=== PATIENT | male | born 1945 | race Caucasian/White ===

== ENCOUNTER 2016-06-25 07:36 | Observation (INO) | payer MEDICARE ==
[~2016-06-25] VITALS: Ht 175.3 cm; Wt 98.5 kg
[~2016-06-25 07:36] MED LIST: LVT.088T PO
--- OUTSIDE RECORDS SUMMARY | 2016-06-25 07:41 | XMS REPORT | Continuity of Care Document ---
Author Author [facility] Organization [facility] Address Unknown Phone Unavailable Care Team Providers Care Subassemblies Wirer Name Role Phone BECKY SHARMA MD PCP Insurance Providers Payer Name Policy Number Subscriber Name Relationship [employer] [id number] Valentino Figueroa 18 Self / Same As Patient [facility] [id number] Valentino Figueroa 16 Self / Same As Patient Advance Directives Directive Response Recorded Date/Time Advance Directives No 12/10/13 7:46am Health Care Power of Ergonomics Consultant No 12/10/13 7:46am Organ Donor No 12/10/13 7:46am Resuscitation Status Full Code 12/10/13 7:46am Problems No known problems or medical conditions. Medications Medication Dose Route Sig Days/Qty Instructions Order Date Discontinued Date Status Levothyroxine Sodium (Levothroid) 1 Each PO DAILY 12/09/13 Active Social History Social History Problem Response Recorded Date/Time Smoking Status Never a Smoker 12/10/2013 7:52am Do you dip or chew tobacco? No 12/10/2013 7:52am Query Response Start Date Stop Date Smoking Status Never a Smoker Hospital Discharge Instructions No hospital discharge instructions. Plan of Care No plan of care. Functional Status No functional status results. Allergies, Adverse Reactions, Alerts Allergen Type Severity Reaction Status Last Updated No Known Allergies Allergy Unknown Active 10/11/06 Immunizations No immunization records. Vital Signs Acute Vital Signs Vital Response Date/Time Temperature (Fahrenheit) 98.2 degrees F (97.6 - 99.5) Temperature (Calculated Celsius) 36.38437 degrees C (36.4 - 37.5) Temperature Source Tympanic Pulse Rate (adult) 44 bpm (60 - 90) Respiratory Rate 18 bpm (12 - 24) O2 Sat by Pulse Oximetry 94 % (88 - 100) Blood Pressure 121/69 mm Hg Pain Pain Intensity 0 Height (Feet) 5 feet Height (Inches) 9.00 inches Height (Calculated Centimeters) 175.545712 cm Weight (Pounds) 215 pounds Weight (Calculated Grams) 37004.361 gm Weight (Calculated Kilograms) 97.806047 kilograms Calculated BMI 31.75 Results Test Source Date Result Interp. Ref. Range Comments Absolute Reticulocyte Count November 16, 2007 9:00am 49 10^3/uL N 22-82 NEEDS PERIPHERAL SMEAR PER DR SHARMA Band Neutrophils November 16, 2007 9:00am 3 % - NEEDS PERIPHERAL SMEAR PER DR SHARMA Basophils # (Auto) November 16, 2007 9:00am 0.0 10^3/uL N 0.0-0.1 NEEDS PERIPHERAL SMEAR PER DR SHARMA Basophils % (Manual) November 16, 2007 9:00am 1 % - NEEDS PERIPHERAL SMEAR PER DR SHARMA Basophils (%) (Auto) November 16, 2007 9:00am 0 % N 0-10 NEEDS PERIPHERAL SMEAR PER DR SHARMA Eosinophils # (Auto) November 16, 2007 9:00am 0.1 10^3/uL N 0.0-0.3 NEEDS PERIPHERAL SMEAR PER DR SHARMA Eosinophils % (Manual) November 16, 2007 9:00am 0 % - NEEDS PERIPHERAL SMEAR PER DR SHARMA Eosinophils (%) (Auto) November 16, 2007 9:00am 1 % N 0-10 NEEDS PERIPHERAL SMEAR PER DR SHARMA Hematocrit November 16, 2007 9:00am 46 % N 40-54 NEEDS PERIPHERAL SMEAR PER DR SHARMA Hemoglobin November 16, 2007 9:00am 15.4 G/DL N 13.3-17.7 NEEDS PERIPHERAL SMEAR PER DR SHARMA Lymphocytes # (Auto) November 16, 2007 9:00am 2.2 X 10^3 N 1.0-4.0 NEEDS PERIPHERAL SMEAR PER DR SHARMA Lymphocytes % (Manual) November 16, 2007 9:00am 32 % - NEEDS PERIPHERAL SMEAR PER DR SHARMA Lymphocytes (%) (Auto) November 16, 2007 9:00am 29 % N 12-44 NEEDS PERIPHERAL SMEAR PER DR SHARMA Mean Corpuscular Hemoglobin November 16, 2007 9:00am 31 PG N 25-34 NEEDS PERIPHERAL SMEAR PER DR SHARMA Mean Corpuscular Hemoglobin Concent November 16, 2007 9:00am 34 G/DL N 32- 36 NEEDS PERIPHERAL SMEAR PER DR SHARMA Mean Corpuscular Volume November 16, 2007 9:00am 91 FL N 80-99 NEEDS PERIPHERAL SMEAR PER DR SHARMA Mean Platelet Volume November 16, 2007 9:00am 10.6 FL H 7.4-10.4 NEEDS PERIPHERAL SMEAR PER DR SHARMA Monocytes # (Auto) November 16, 2007 9:00am 1.0 X 10^3 N 0.0-1.0 NEEDS PERIPHERAL SMEAR PER DR SHARMA Monocytes % (Manual) November 16, 2007 9:00am 12 % - NEEDS PERIPHERAL SMEAR PER DR SHARMA Monocytes (%) (Auto) November 16, 2007 9:00am 13 % H 0-12 NEEDS PERIPHERAL SMEAR PER DR SHARMA Neutrophils # (Auto) November 16, 2007 9:00am 4.3 X 10^3 N 1.8-7.8 NEEDS PERIPHERAL SMEAR PER DR SHARMA Neutrophils % (Manual) November 16, 2007 9:00am 52 % - NEEDS PERIPHERAL SMEAR PER DR SHARMA Neutrophils (%) (Auto) November 16, 2007 9:00am 57 % N 42-75 NEEDS PERIPHERAL SMEAR PER DR SHARMA Percent Reticulocyte Count November 16, 2007 9:00am 0.97 % N 0.50-2.40 NEEDS PERIPHERAL SMEAR PER DR SHARMA Platelet Count November 16, 2007 9:00am 212 10^3/uL N 130-400 NEEDS PERIPHERAL SMEAR PER DR SHARMA Red Blood Count November 16, 2007 9:00am 5.01 10^6/uL N 4.35-5.85 NEEDS PERIPHERAL SMEAR PER DR SHARMA Red Cell Distribution Width November 16, 2007 9:00am 13.1 % N 10.0-14.5 NEEDS PERIPHERAL SMEAR PER DR SHARMA White Blood Count November 16, 2007 9:00am 7.6 10^3/uL N 4.3-11.0 NEEDS PERIPHERAL SMEAR PER DR SHARMA Blood Morphology Comment November 16, 2007 9:00am Normal - NEEDS PERIPHERAL SMEAR PER DR SHARMA Procedures Procedure Status Date Provider(s) Esophagogastroduodenoscopy (EGD) with dilation completed 12/10/13 SHYLA JARAMILLO MD Encounters Encounter Location Date/Time Registered Clinic [facility] 12/04/13 7:08am
[2016-06-25] MEDS ORDERED: ASPI-999 PO (07:46)
--- NOTE | 2016-06-25 07:47 | ED Respiratory ---
General Chief Complaint: Respiratory Problems Stated Complaint: SOB Nursing Triage Note: HAS HAD A COUGH FOR 2 WEEKS BUT THIS AM WOKE UP AT 2AM WITH SEVERE SOA. DENIES CHEST PAIN. Source: patient, family Exam Limitations: no limitations History of Present Illness Time seen by provider: 07:46 Initial Comments This 70-year-old white male presents with his who contributes to the history of the patient. For the last 2 weeks the patient has had a persistent productive cough with green sputum. The patient has had intermittent fever. This morning the patient experienced an episode of shortness of breath without associated chest pain. This episode precipitated his presentation to the emergency department. Past medical history of significance includes hypothyroidism. There is no history of lung disease. There is a family history of heart disease and diabetes. The patient is under the care of Dr. Sharma. There has been no associated headache or stiff neck, nausea, vomiting, diarrhea , dysuria or frequency. There is no history of clotting abnormalities. The patient takes a baby aspirin daily prophylactically. Allergies and Home Medications Allergies Coded Allergies: NKANo Known Allergies (Verified Allergy, Unknown, 10/11/06) Home Medications Aspirin 81 Mg Tab.chew 81 MG PO DAILY (Reported) Levothyroxine Sodium 88 Mcg Tablet 1 EACH PO DAILY (Reported) Constitutional: fever EENTM: No ear pain, No nose congestion, No throat pain Respiratory: see HPI cough short of breath Cardiovascular: No chest pain, No palpitations Gastrointestinal: No abdominal pain, No diarrhea, No nausea, No vomiting Genitourinary: No dysuria, No frequency Musculoskeletal: No back pain, No joint swelling Skin: No rash Psychiatric/Neurological: No Symptoms Reported Hematologic/Lymphatic: Denies Blood Clots Immunological/Allergic: pollen allergy Past Zqngoie-Vxzcdl-Qpgzpb Hx Patient Social History Alcohol Use: Denies Use Recreational Drug Use: No Smoking Status: Never a Smoker Recent Foreign Travel: No Contact w/Someone Who Travel: No Recent Infectious Disease Expo: No Recent Hopitalizations: No Surgeries HX Surgeries: Yes (HEMORRHOIDECTOMY) Surgeries: Rectal (hemorrhoidectomy.), Tonsillectomy Respiratory Hx Respiratory Disorders: No Cardiovascular Hx Cardiac Disorders: No Neurological Hx Neurological Disorders: No Genitourinary Hx Genitourinary Disorders: No Gastrointestinal Hx Gastrointestinal Disorders: No Musculoskeletal Hx Musculoskeletal Disorders: Yes (ARTHRITIS) Endocrine Hx Endocrine Disorders: Yes Endocrine Disorders: Hypothyroidsim Cancer Hx Cancer: Yes Cancer: Skin Psychosocial Hx Psychiatric Problems: Yes Behavioral Health Disorders: Anxiety Reviewed Nursing Assessment Reviewed/Agree w Nursing PMH: Yes Physical Exam Vital Signs Vital Sign - Last 12Hours 06/25/16 07:41 Temp 96.2 Pulse 46 Resp 18 B/P 150/68 Pulse Ox 93 Capillary Refill : Less Than 3 Seconds General Appearance: WD/WN no apparent distress Eyes: Bilateral Eye Normal Inspection HEENT: normal ENT inspection Neck: normal inspection Respiratory: rales ({) Cardiovascular: normal peripheral pulses regular rate, rhythm no gallop no JVD no murmur Gastrointestinal: normal bowel sounds non tender soft Extremities: normal range of motion non-tender normal inspection no pedal edema Neurologic/Psychiatric: no motor/sensory deficits alert normal mood/affect oriented x 3 Skin: normal color warm/dry Progress/Results/Core Measures Results/Orders Lab Results Laboratory Tests Test 06/25/16 07:55 06/25/16 09:01 Range/Units Alanine Aminotransferase (ALT/SGPT) 30 0-55 U/L Albumin 3.7 3.2-4.5 G/DL Alkaline Phosphatase 61 40-136 U/L Anion Gap 12 5-14 MMOL/L Aspartate Amino Transf (AST/SGOT) 30 5-34 U/L BUN/Creatinine Ratio 18 Basophils # (Auto) 0.0 0.0-0.1 10^3/uL Basophils (%) (Auto) 0 0-10 % Blood Urea Nitrogen 16 7-18 MG/DL Calcium Level 8.9 8.5-10.1 MG/DL Carbon Dioxide Level 21 21-32 MMOL/L Chloride Level 106 98-107 MMOL/L Creatinine 0.91 0.60-1.30 MG/DL Eosinophils # (Auto) 0.1 0.0-0.3 10^3/uL Eosinophils (%) (Auto) 2 0-10 % Estimat Glomerular Filtration Rate > 60 Glucose Level 140 H 70-105 MG/DL Hematocrit 42 40-54 % Hemoglobin 14.1 13.3-17.7 G/DL Lactic Acid Level 1.87 0.50-2.00 MMOL/L Lymphocytes # (Auto) 1.5 1.0-4.0 X 10^3 Lymphocytes (%) (Auto) 22 12-44 % Mean Corpuscular Hemoglobin 31 25-34 PG Mean Corpuscular Hemoglobin Concent 34 32-36 G/DL Mean Corpuscular Volume 90 80-99 FL Mean Platelet Volume 10.2 7.4-10.4 FL Monocytes # (Auto) 0.8 0.0-1.0 X 10^3 Monocytes (%) (Auto) 11 0-12 % Neutrophils # (Auto) 4.5 1.8-7.8 X 10^3 Neutrophils (%) (Auto) 65 42-75 % Platelet Count 203 130-400 10^3/uL Potassium Level 4.3 3.6-5.0 MMOL/L Red Blood Count 4.62 4.35-5.85 10^6/uL Red Cell Distribution Width 12.7 10.0-14.5 % Sodium Level 139 135-145 MMOL/L Total Bilirubin 0.7 0.1-1.0 MG/DL Total Protein 6.4 6.4-8.2 G/DL Troponin I < 0.30 <0.30 NG/ML White Blood Count 6.9 4.3-11.0 10^3/uL Sanjeev Test YES-POS Arterial Blood Base Excess 8.0 H -2.5-2.5 MMOL/L Arterial Blood HCO3 32 H 23-27 MMOL/L Arterial Blood Oxygen Saturation 92 L 94-100 % Arterial Blood Partial Pressure CO2 39 35-45 MMHG Arterial Blood Partial Pressure O2 58 L 79-93 MMHG Arterial Blood Total CO2 32.7 H 21.0-31.0 MMOL/L Arterial Blood pH 7.52 H 7.37-7.43 Blood Gas Inspired Oxygen ROOM AIR Blood Gas Patient Temperature 97.8 Blood Gas Puncture Site LT RAD Blood Gas Ventilator Setting NO My Orders Orders-SHYLA LAGOS MD Cbc With Automated Diff (06/25/16 07:49) Chest Pa/Lat (2 View) (06/25/16 07:49) Blood Culture (06/25/16 07:49) Lactic Acid Analyzer (06/25/16 07:49) Albuterol/Ipra Inhalation Soln (Duoneb I (06/25/16 08:00) Svn Sm Volume Nebulizer Rt-Rfs (06/25/16 07:49) Ekg Tracing (06/25/16 08:12) Troponin I (06/25/16 08:12) Blood Culture (06/25/16 08:21) Ceftriaxone Injection (Rocephin Injectio (06/25/16 08:30) Azithromycin Iv Add-[place] (Zithromax I (06/25/16 08:30) Ct Chest W (06/25/16 08:51) Arterial Blood Gas (06/25/16 09:01) Comprehensive Metabolic Panel (06/25/16 09:12) Iohexol Injection (Omnipaque 350 Mg/Ml 1 (06/25/16 10:00) Ns (Ivpb) (Sodium Chloride 0.9% Ivpb Bag (06/25/16 10:00) Medications Given in ED Current Medications Medications Dose Ordered Sig/Jospeh Route Start Time Stop Time Status Last Admin Dose Admin Albuterol/ Ipratropium 3 ml 3 ml ONCE ONCE INH 06/25/16 08:00 06/25/16 08:01 DC 06/25/16 08:01 3 ML Azithromycin/ Sodium Chloride 250 ml @ 250 mls/hr ONCE ONCE IV 06/25/16 08:30 06/25/16 09:29 DC 06/25/16 09:54 250 MLS/HR Ceftriaxone Sodium 2000 mg/ Sodium Chloride 50 ml @ 100 mls/hr ONCE ONCE IV 06/25/16 08:30 06/25/16 08:59 DC 06/25/16 09:03 100 MLS/HR Iohexol 75 ml ONCE ONCE IV 06/25/16 10:00 06/25/16 10:07 DC 06/25/16 10:11 75 ML Sodium Chloride 100 ml ONCE ONCE IV 06/25/16 10:00 06/25/16 10:07 DC 06/25/16 10:12 75 ML Vital Signs/I&O Vital Sign - Last 12Hours 06/25/16 06/25/16 07:41 08:01 Temp 96.2 Pulse 46 Resp 18 B/P 150/68 Pulse Ox 93 97 Blood Pressure Mean: 95 Progress Note : Time: 11:04 Progress Note The patient's evaluation emergency department demonstrated normal white count, mild basilar atelectasis and hilar fullness, a CT which demonstrated no evidence of hilar path allergy, and a relative hypoxia (PO2 58 on room air). The patient had had 2 blood cultures and a lactic acid drawn. Patient received a gram of Rocephin and 500 mg of Zithromax IV. After telephone consultation with Dr. Rice who was kind enough to admit the patient orders were written the patient was transferred to floor. Departure Communication Time/Spoke to Admitting Phy: 11:[address] Rice. Impression Impression: Primary Impression: Pneumonia Qualified Code: J18.1 - Lobar pneumonia, unspecified organism Additional Impression: Hypoxia Disposition: ADMITTED INPATIENT Condition: Improved Departure-Patient Inst. Referrals: BECKY SHARMA MD (PCP/Family) Primary Care Physician SHYLA LAGOS MD Jun 25, 2016 07:47
[2016-06-25] MEDS ORDERED: RT-ALBUTEROL/IPRATROPIUM 3 ML (DUONEB) VIAL INH ONE (08:00)
[2016-06-25 08:09] LABS: BASOPHILS % (AUTO) 0 % (0-10); EOSINOPHILS # (AUTO) 0.1 10^3/uL (0.0-0.3); EOSINOPHILS % (AUTO) 2 % (0-10); LYMPHOCYTES # (AUTO) 1.5 X 10^3 (1.0-4.0); LYMPHOCYTES % (AUTO) 22 % (12-44); MEAN CORPUSCULAR HEMOGLOBIN 31 PG (25-34); MEAN CORPUSCULAR HGB CONC 34 G/DL (32-36); MEAN CORPUSCULAR VOLUME 90 FL (80-99); MEAN PLATELET VOLUME 10.2 FL (7.4-10.4); MONOCYTES # (AUTO) 0.8 X 10^3 (0.0-1.0); MONOCYTES % (AUTO) 11 % (0-12); NEUTROPHILS # (AUTO) 4.5 X 10^3 (1.8-7.8); NEUTROPHILS % (AUTO) 65 % (42-75); PLATELET COUNT 203 10^3/uL (130-400); RED BLOOD COUNT 4.62 10^6/uL (4.35-5.85); RED CELL DISTRIBUTION WIDTH 12.7 % (10.0-14.5); WHITE BLOOD COUNT 6.9 10^3/uL (4.3-11.0)
[2016-06-25] MEDS ORDERED: cefTRIAXone INJECTION 2,000 MG in NS (IVPB) 50 ML IV ONE (08:30)
[2016-06-25] MEDS ORDERED: AZITHROMYCIN IV ADD-VANTAGE 500 MG in SODIUM CHLORIDE (ADD-VANTAGE) 250 ML IV ONE (08:30)
--- NOTE | 2016-06-25 08:33 | Diagnostic Imaging Report ---
EXAMINATION: CHEST (PA AND LATERAL) CLINICAL INDICATION: 70-year-old male, cough for 2 weeks. Acute onset shortness of breath. COMPARISON: None. FINDINGS: Heart size and mediastinal contours are unremarkable. There is no identified pneumothorax. There is no pleural effusion. There are areas of nodular prominence in the right and left hilum. Comparisons are not available to assess for stability. There is no identified focal airspace consolidation. There are advanced bilateral glenohumeral degenerative changes. IMPRESSION: 1. Nodular areas of prominence in the right and left hilum. Comparisons are unavailable to assess for potential stability. Although potentially relating to the pulmonary vasculature, dedicated CT of the chest with intravenous contrast is recommended to evaluate for hilar adenopathy. 2. No otherwise noted acute cardiopulmonary abnormality. Dictated by: Dictated on workstation # [id number]
[2016-06-25 09:11] LABS: ABG HCO3 32 MMOL/L (23-27); ABG OXYGEN SATURATION 92 % (94-100); ABG PCO2 39 MMHG (35-45); ABG PH 7.52 (7.37-7.43); ABG PO2 58 MMHG (79-93); ABG TCO2 32.7 MMOL/L (21.0-31.0)
[2016-06-25 09:13] LABS: ALLENS TEST YES-POS; PATIENT TEMP 97.8
[2016-06-25 09:33] LABS: ALANINE AMINOTRANSFERASE 30 U/L (0-55); ALBUMIN 3.7 G/DL (3.2-4.5); ANION GAP 12 MMOL/L (5-14); ASPARTATE AMINO TRANSFERASE 30 U/L (5-34); BILIRUBIN,TOTAL 0.7 MG/DL (0.1-1.0); BLOOD UREA NITROGEN 16 MG/DL (7-18); BUN/CREATININE RATIO 18; CALCIUM 8.9 MG/DL (8.5-10.1); CARBON DIOXIDE 21 MMOL/L (21-32); CHLORIDE 106 MMOL/L (98-107); CREATININE SERUM 0.91 MG/DL (0.60-1.30); GFR ESTIMATED > 60; GLUCOSE 140 MG/DL (70-105); POTASSIUM 4.3 MMOL/L (3.6-5.0); SODIUM 139 MMOL/L (135-145); TOTAL PROTEIN 6.4 G/DL (6.4-8.2)
[2016-06-25] MEDS ORDERED: IOHEXOL 350 MG/ML 100 ML (OMNIPAQUE 350) VIAL IV ONE (10:00)
[2016-06-25] MEDS ORDERED: NS 100 ML (IVPB) BAG IV ONE (10:00)
--- NOTE | 2016-06-25 10:33 | Diagnostic Imaging Report ---
PROCEDURE: CT chest with contrast only. TECHNIQUE: Multiple contiguous axial images were obtained through the chest after administration of intravenous contrast. INDICATION: Shortness of breath and chest pressure. COMPARISON: None. FINDINGS: There is minimal bilateral basilar atelectasis. The lungs are otherwise clear. There is no pneumothorax or pleural fluid demonstrated. Heart size appears normal and there is no pericardial effusion. There is no mediastinal or hilar adenopathy. The thyroid gland appears unremarkable as visualized. No acute osseous abnormality is demonstrated. Visualized upper abdomen is unremarkable. IMPRESSION: No acute abnormality is seen in the chest. Dictated by: Dictated on workstation # [id number]
[2016-06-25 12:10] VITALS: BP 129/60
[2016-06-25] MEDS ORDERED: FLU TRIvalent (5 YOA+) 2016-17 (AFLURIA) 0.5 ML IM ONE (13:30)
[2016-06-25 15:53] VITALS: BP 135/67
[2016-06-25 20:05] VITALS: BP 158/72
[2016-06-26] VITALS: BP 121/57
[2016-06-26 04:00] VITALS: BP 126/60
[2016-06-26 04:44] LABS: BASOPHILS % (AUTO) 0 % (0-10); EOSINOPHILS # (AUTO) 0.1 10^3/uL (0.0-0.3); EOSINOPHILS % (AUTO) 2 % (0-10); LYMPHOCYTES # (AUTO) 1.8 X 10^3 (1.0-4.0); LYMPHOCYTES % (AUTO) 29 % (12-44); MEAN CORPUSCULAR HEMOGLOBIN 31 PG (25-34); MEAN CORPUSCULAR HGB CONC 34 G/DL (32-36); MEAN CORPUSCULAR VOLUME 91 FL (80-99); MEAN PLATELET VOLUME 10.3 FL (7.4-10.4); MONOCYTES # (AUTO) 0.9 X 10^3 (0.0-1.0); MONOCYTES % (AUTO) 14 % (0-12); NEUTROPHILS # (AUTO) 3.4 X 10^3 (1.8-7.8); NEUTROPHILS % (AUTO) 55 % (42-75); PLATELET COUNT 213 10^3/uL (130-400); RED BLOOD COUNT 4.37 10^6/uL (4.35-5.85); RED CELL DISTRIBUTION WIDTH 13.1 % (10.0-14.5); WHITE BLOOD COUNT 6.1 10^3/uL (4.3-11.0)
[2016-06-26 05:26] LABS: ALANINE AMINOTRANSFERASE 28 U/L (0-55); ALBUMIN 3.6 G/DL (3.2-4.5); ANION GAP 9 MMOL/L (5-14); ASPARTATE AMINO TRANSFERASE 25 U/L (5-34); BILIRUBIN,TOTAL 0.9 MG/DL (0.1-1.0); BLOOD UREA NITROGEN 12 MG/DL (7-18); BUN/CREATININE RATIO 13; CALCIUM 8.8 MG/DL (8.5-10.1); CARBON DIOXIDE 25 MMOL/L (21-32); CHLORIDE 107 MMOL/L (98-107); GFR ESTIMATED > 60; GLUCOSE 116 MG/DL (70-105); POTASSIUM 4.5 MMOL/L (3.6-5.0); SODIUM 141 MMOL/L (135-145); TOTAL PROTEIN 6.2 G/DL (6.4-8.2)
[2016-06-26] MEDS: RT-ALBUTEROL/IPRATROPIUM 3 ML (DUONEB) VIAL IH SCH ×6 (07:00→18:51)
[2016-06-26 08:00] VITALS: BP 150/67
[2016-06-26] MEDS: cefTRIAXone 1 GM/NS 50 ML IVPB IV SCH ×2 (08:36)
[2016-06-26] MEDS: AZITHROMYCIN 500 MG/NS 250 ML IVPB IV SCH ×2 (09:10)
--- NOTE | 2016-06-26 10:47 | Diagnostic Imaging Report ---
INDICATION: Cough and congestion. Comparison made with prior examination from 06/25/16. FINDINGS: The heart size is normal. Mediastinum is unremarkable. There is no pleural effusion, pneumothorax or pneumonia. There are persistent nodular areas of soft tissue prominence about the yajaira bilaterally. IMPRESSION: Stable appearance of the chest. Dictated by: Dictated on workstation # [id number]
[2016-06-26 12:00] VITALS: BP 130/62
--- NOTE | 2016-06-26 13:26 | History & Physical-Hospitalist ---
HPI History of Present Illness: HPI/Chief Complaint The patient is a 70-year-old white male who presented to the emergency room yesterday morning with complaints of the acute onset of shortness of breath. The patient relates that he had had a cough and apparent upper respiratory illness for about 2 weeks. He stated that at 0200 hours on 06/25 he was awakened with the sense of severe dyspnea. He denied chest pain. He did note that during the course of his illness he had fever at times. He had also had productive cough with green sputum. He is normally quite fit and works out regularly at the [employer]. There Is no past history of smoking, asthma, heart disease. Source: patient, family Exam Limitations: no limitations Date Seen 06/26/16 Attending Physician Saroj Davidson MD PCP Ovidio Montero MD Referring Physician Date of Admission Jun 25, 2016 at 10:58 Home Medications & Allergies Home Medications Reviewed patient Home Medication Reconciliation Form Allergies Coded Allergies: NKANo Known Allergies (Verified Allergy, Unknown, 10/11/06) Past Yvkyizy-Ecmlvo-Sawajs Hx Patient Social History Alcohol Use: Denies Use Recreational Drug Use: No Smoking Status: Never a Smoker Physical Abuse Screen: No Sexual Abuse: No Recent Foreign Travel: No Contact w/other who traveled: No Recent Hopitalizations: No Recent Infectious Disease Expo: No Seasonal Allergies Seasonal Allergies: Yes Surgeries HX Surgeries: Yes (HEMORRHOIDECTOMY) Surgeries: Rectal (hemorrhoidectomy.), Tonsillectomy Respiratory Hx Respiratory Disorders: No Cardiovascular Hx Cardiovascular Disorders: No Neurological Hx Neurological Disorders: No Reproductive System Sexually Transmitted Disease: No Genitourinary Hx Genitourinary Disorders: No Gastrointestinal Hx Gastrointestinal Disorders: No Musculoskeletal Hx Musculoskeletal Disorders: Yes (ARTHRITIS) Musculoskeletal Disorders: Arthritis Endocrine Hx Endocrine Disorders: Yes Endocrine Disorders: Hypothyroidsim HEENT HEENT Disorders: Cataract Loss of Vision: Denies Hearing Impairment: Denies Cancer Hx Cancer: Yes Cancer: Skin Psychosocial Hx Psychiatric Problems: Yes Behavioral Health Disorders: Anxiety Reviewed Nursing Assessment Reviewed/Agree w Nursing PMH: Yes Review of Systems Constitutional: see HPI EENTM: nose congestion other (postnasal drip) Respiratory: cough orthopnea short of breath Cardiovascular: no symptoms reported Gastrointestinal: no symptoms reported Genitourinary: no symptoms reported Musculoskeletal: no symptoms reported Skin: no symptoms reported Psychiatric/Neurological: No Symptoms Reported Physical Exam Physical Exam Vital Signs Vital Sign - Last 12Hours 06/25/16 06/25/16 07:41 12:00 Temp 96.2 Pulse 46 Resp 18 B/P 150/68 Pulse Ox 93 O2 Delivery Nasal Cannula O2 Flow Rate 2.00 Capillary Refill : Less Than 3 SecondsLess Than 3 Seconds General Appearance: No Apparent Distress WD/WN Other (nasal cannula O2 at [address] with SaO2 is in the mid 90s) Eyes: Bilateral Eye Normal Inspection HEENT: Normal ENT Inspection Neck: Normal Inspection Respiratory: Other (wheezing and rhonchi in the upper posterior lung hooks bilaterally left greater than right) Cardiovascular: Regular Rate, Rhythm No Edema No Gallop No JVD No Murmur Normal Peripheral Pulses Gastrointestinal: Normal Bowel Sounds No Organomegaly No Pulsatile Mass Non Tender Soft Extremity: Normal Capillary Refill Normal Inspection Normal Range of Motion Non Tender No Calf Tenderness No Pedal Edema Neurologic/Psychiatric: Alert Oriented x3 No Motor/Sensory Deficits Normal Mood/Affect Skin: Normal Color Warm/Dry Lymphatic: No Adenopathy Comments X-rays were examined. There were no abnormalities reported and none that I discerned either. Laboratory was normal. Blood gas showed relative hypoxia which is unexplained. Results Results/Procedures Lab Laboratory Tests 06/25/16 07:55 06/26/16 04:15 Assessment/Plan Admission Diagnosis 1. Upper respiratory illness presumably viral over a period of 2 weeks. 2.hypoxia unexplained Assessment and Plan Empirically add Solu-Medrol. Consult with Dr. Salgado for a.m. Clinical Quality Measures DVT/VTE Risk/Contraindication: Risk Factor Score Per Nursin RFS Level Per Nursing on Admit: 3=High SAROJ DAVIDSON MD Jun 26, 2016 13:26
[2016-06-26] MEDS: methylPREDNISolone 125 MG (Solu-MEDROL) VIAL IVP SCH (14:04)
[2016-06-26 16:57] VITALS: BP 129/59
[2016-06-26 20:14] VITALS: BP 134/61
[2016-06-27] VITALS: BP 133/64
[2016-06-27] MEDS: methylPREDNISolone 125 MG (Solu-MEDROL) VIAL IVP SCH (01:16)
--- NOTE | 2016-06-27 07:25 | Pulmonary Consultation ---
History of Present Illness History of Present Illness Date of Consultation 06/27/16 07:20 Date of Admission History of Present Illness 70yo presented to ED secondary to acute onset of SOB and found to be hypoxic in ED. Pt has had progressive cough productive cough with green sputum and congestion for the last 2 wks. day of admission pt woke up around 0200 with severe dyspnea. No CP. Pt has not had any prior episodes like this and usually work out at [facility] 5 days/wk. NO hx of asthma or lung disease. Allergies and Home Medications Allergies Coded Allergies: NKANo Known Allergies (Verified Allergy, Unknown, 10/11/06) Home Medications Aspirin 81 Mg Tab.chew 81 MG PO DAILY (Reported) Levothyroxine Sodium 88 Mcg Tablet 1 EACH PO DAILY (Reported) Past Ounkvgo-Ywymwq-Namvyk Hx Patient Social History Alcohol Use: Denies Use Recreational Drug Use: No Smoking Status: Never a Smoker Recent Foreign Travel: No Contact w/Someone Who Travel: No Recent Infectious Disease Expo: No Recent Hopitalizations: No Physical Abuse Screen: No Sexual Abuse: No Seasonal Allergies Seasonal Allergies: Yes Surgeries HX Surgeries: Yes (HEMORRHOIDECTOMY) Surgeries: Rectal (hemorrhoidectomy.), Tonsillectomy Respiratory Hx Respiratory Disorders: No Cardiovascular Hx Cardiac Disorders: No Neurological Hx Neurological Disorders: No Reproductive System Sexually Transmitted Disease: No Genitourinary Hx Genitourinary Disorders: No Gastrointestinal Hx Gastrointestinal Disorders: No Musculoskeletal Hx Musculoskeletal Disorders: Yes (ARTHRITIS) Musculoskeletal Disorders: Arthritis Endocrine Hx Endocrine Disorders: Yes Endocrine Disorders: Hypothyroidsim HEENT HEENT Disorders: Cataract Loss of Vision: Denies Hearing Impairment: Denies Cancer Hx Cancer: Yes Cancer: Skin Psychosocial Hx Psychiatric Problems: Yes Behavioral Health Disorders: Anxiety Reviewed Nursing Assessment Reviewed/Agree w Nursing PMH: Yes Exam Exam Vital Signs Date Time Temp Pulse Resp B/P Pulse Ox O2 Delivery O2 Flow Rate FiO2 06/27/16 00:00 99.0 75 16 133/64 97 Nasal Cannula 2.00 06/26/16 21:00 Nasal Cannula 2.00 06/26/16 20:14 98.6 92 18 134/61 95 Nasal Cannula 2.00 06/26/16 18:52 97 2.00 06/26/16 16:57 98.6 64 18 129/59 96 Nasal Cannula 2.00 06/26/16 14:36 93 2.00 06/26/16 12:00 97.6 67 18 130/62 94 Nasal Cannula 2.00 06/26/16 10:56 93 2.00 06/26/16 08:58 Nasal Cannula 2.00 06/26/16 08:00 96.9 58 18 150/67 96 Room Air 06/26/16 07:29 96 2.00 I & O 06/27/16 07:00 Intake Total 3140 ml Output Total 1025 ml Balance 2115 ml General Appearance: No Apparent Distress WD/WN Other (nasal cannula O2 at [address] with SaO2 is in the mid 90s) HEENT: Normal ENT Inspection Other (mallampatti score of 4) Neck: Normal Inspection Respiratory: Other (wheezing and rhonchi in the upper posterior lung hooks bilaterally left greater than right) Cardiovascular: Regular Rate, Rhythm No Edema No Gallop No JVD No Murmur Normal Peripheral Pulses Capillary Refill: Less Than 3 Seconds Gastrointestinal: normal bowel sounds non tender soft Extremity: Normal Capillary Refill Normal Inspection Normal Range of Motion Non Tender No Calf Tenderness No Pedal Edema Neurologic/Psychiatric: Alert Oriented x3 No Motor/Sensory Deficits Normal Mood/Affect Skin: Normal Color Warm/Dry Lymphatic: No Adenopathy Results Lab Laboratory Tests 06/25/16 07:55 06/26/16 04:15 Assessment/Plan Assessment/Plan Dyspnea with hypoxia -Currently on Rocephin and azithromycin -Solumedrol -Check oxygen desaturation testing this AM with ambulation -CT of chest with contrast shows no acute change. -PFT as out patient. I suspect ELY, waking up SOB, Mallampati score of 4 - Will do out patient PSG Clinical Quality Measures DVT/VTE Risk/Contraindication: Risk Factor Score Per Nursin RFS Level Per Nursing on Admit: 3=High MIGUEL TORRES DO Jun 27, 2016 07:25
[2016-06-27] MEDS: RT-ALBUTEROL/IPRATROPIUM 3 ML (DUONEB) VIAL IH SCH ×2 (07:35→10:56)
[2016-06-27 08:00] VITALS: BP 142/72
[2016-06-27] MEDS ORDERED: CATHETER FLUSH 10 ML SYR IV PRN (08:00)
[2016-06-27] MEDS ORDERED: ASPIRIN 81 MG CHEW (CHILDREN'S ASA) PO SCH (09:00)
[2016-06-27] MEDS ORDERED: LEVOTHYROXINE 88 MCG (LEVOTHORID) TAB PO SCH (09:00)
[2016-06-27] MEDS: AZITHROMYCIN 500 MG/NS 250 ML IVPB IV SCH ×2 (09:54)
[2016-06-27] MEDS: cefTRIAXone 1 GM/NS 50 ML IVPB IV SCH ×2 (09:55)
[2016-06-27] MEDS ORDERED: ASPI-983 PO (10:05)
--- NOTE | 2016-06-27 10:58 | Discharge Summary-Hospitalist ---
Diagnosis/Chief Complaint Date of Admission Jun 25, 2016 at 10:58 Date of Discharge Admission Diagnosis 1. Upper respiratory illness presumably viral over a period of 2 weeks. 2.hypoxia unexplained Discharge Diagnosis 1. Upper respiratory illness presumably viral over a period of 2 weeks. 2.hypoxia unexplained but likely due to newly diagnosed asthma/COPD with negative CT angiogram for PE 3. Hypothyroidism Reason Hospital Visit/Course The patient is a 70-year-old white male who presented to the emergency room yesterday morning with complaints of the acute onset of shortness of breath. The patient relates that he had had a cough and apparent upper respiratory illness for about 2 weeks. He stated that at 0200 hours on 06/25 he was awakened with the sense of severe dyspnea. He denied chest pain. He did note that during the course of his illness he had fever at times. He had also had productive cough with green sputum. He is normally quite fit and works out regularly at the [employer]. There Is no past history of smoking, asthma, heart disease. Notes from 06/27/2016: Chart Review: Dr. Salgado saw pt. CXR stable yesterday No fever Vitals stable Pharmacy Review: Pharmacy suggests Zithromax 250mg daily for 2 more days Patient Interview: Pt states that he is doing well and has been ambulating. 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 Dr. Bryant discusses possibility of ELY with pt. Physical exam stable. Pt denies smoking or drinking ETOH. PCP is Dr. Montero, and pt sees him once per year. Pt is not requiring O2, and feels strong when he ambulates. Pt uses [facility]. Pt denies need for cough medicine. Pt is urinating and having regular BMs. Pt is receiving home meds. vitals stable, pleasant, oriented 3, flat affect, at bedside Regular rate and rhythm, clear to all sedation bilaterally but diminished in the bases no tachypnea No edema Plan: DC with Zithromax 250mg daily for 2 more days Quick taper steroids Follow-up with Dr. Montero and Dr. Salgado regarding ELY Scribed by Rony Pacheco under the direct supervision of Dr. Bryant. Discharge Summary Discharge Physical Examination Allergies: Coded Allergies: NKANo Known Allergies (Verified Allergy, Unknown, 10/11/06) Vitals & I&Os Vital Signs Date Time Temp Pulse Resp B/P Pulse Ox O2 Delivery O2 Flow Rate FiO2 06/27/16 08:00 97.7 90 20 142/72 97 Room Air 06/27/16 07:42 2.00 Hospital Course Labs (last 24 hrs) Microbiology 06/25/16 Blood Culture - Preliminary, Resulted No growth Discharge Home Medications: Active Scripts Active Proair Hfa (Albuterol Sulfate) 1 Puff Puff 2 Puff IH Q4H 1 PUFF = 90 MCG Prednisone 10 Mg Tab.ds.pk 10 Mg PO DAILY Take 6 tabs(60mg)daily,decrease by 1 tab(10MG)daily. Zithromax (Azithromycin) 250 Mg Tablet 250 Mg PO DAILY Reported Aspirin EC (Aspirin) 81 Mg Tablet.dr 81 Mg PO 1200 Levothyroxine 88 Mcg Tab (Levothyroxine Sodium) 88 Mcg Tablet 88 Mcg PO DAILY Instructions to patient/family Please see electonic discharge instructions given to patient. Clinical Quality Measures DVT/VTE Risk/Contraindication: Risk Factor Score Per Nursin RFS Level Per Nursing on Admit: 3=High KRISTEN BRYANT DO Jun 27, 2016 10:58
[2016-06-27] MEDS ORDERED: AZIT250T PO (11:12)
[2016-06-27] MEDS ORDERED: RT-ALBUINH IH (11:12)
[2016-06-27] MEDS ORDERED: PRED10TA22 PO (11:12)
--- NOTE | 2016-06-27 11:14 | Discharge Instructions ---
Discharge Instructions Discharge Medications New, Converted or Re-Newed RX: Transmitted to Pharmacy New Medications: Albuterol Sulfate (Proair Hfa) 1 Puff Puff 2 PUFF IH Q4H 1 PUFF = 90 MCG #1 PUFF Azithromycin (Zithromax) 250 Mg Tablet 250 MG PO DAILY #3 TAB Prednisone (Prednisone) 10 Mg Tab.ds.pk 10 MG PO DAILY Take 6 tabs(60mg)daily,decrease by 1 tab(10MG)daily. #21 PKG Continued Medications: Aspirin (Aspirin EC) 81 Mg Tablet. 81 MG PO 1200 TAB Levothyroxine Sodium (Levothyroxine 88 Mcg Tab) 88 Mcg Tablet 88 MCG PO DAILY TAB Patient Instructions Goal/Follow Up Appt: Dr. Sharma in one week Obtain appointment with Dr. Salgado to pursue obstructive sleep apnea evaluation Patient Instructions: complete steroids as directed along with antibiotic for 3 days Activity & Diet Discharge Diet: No Restrictions Activity as Tolerated: Yes Copy Copies To 1: BECKY SHARMA MD, MINDI DO Jun 27, 2016 11:13
[2016-06-27 12:49] VITALS: BP 136/67
[2016-06-27] MEDS ORDERED: CATHETER FLUSH 10 ML SYR IV SCH (14:00)
[2016-06-28] MEDS ORDERED: ASPIRIN E.C. 81 MG (ECOTRIN) TAB PO SCH (12:00)
== END 2016-06-27 11:12 | disposition home or self-care (01) ==
LOC: EDUNIT# 07:36 → ER 07:38 → 4TH 10:58 → UNDOADMOB 10:58 → 4TH 11:46 → UNDODISOB 06-27 13:03
PROVIDERS: ADMIT Internal Medicine; ATTEND Internal Medicine
DX: R06.00 Dyspnea, unspecified (principal); R09.02 Hypoxemia; J39.9 Disease of upper respiratory tract, unspecified; E03.9 Hypothyroidism, unspecified
CPT/HCPCS: 36415; 71020; 71260; 80053; 82805; 83605; 84484; 85025; 87040; 93005; 94640; 94760; 94761; 96365; G0378

== ENCOUNTER 2017-01-12 05:33 | Outpatient (CLI) | payer MEDICARE ==
[~2017-01-12] VITALS: Ht 175.3 cm; Wt 95.4 kg
[~2017-01-12 05:33] MED LIST changes: +ASPI-983 PO; +ASPI-999 PO; +AZIT250T PO; +PRED10TA22 PO; +RT-ALBUINH IH
[2017-01-12] MEDS ORDERED: LEVO88TA54 PO (10:21)
== END 2017-01-12 10:29 ==
LOC: PREOP 05:33
PROVIDERS: ATTEND Surgery
DX: K40.90 Unilateral inguinal hernia, without obstruction or gangrene, not specified as recurrent; Z01.818 Encounter for other preprocedural examination

== ENCOUNTER 2017-01-16 05:59 | Day surgery (SDC) | payer MEDICARE ==
[~2017-01-16] VITALS: Ht 175.3 cm; Wt 95.4 kg
[~2017-01-16 05:59] MED LIST changes: +LEVO88TA54 PO
[2017-01-16 06:30] VITALS: BP 141/78
[2017-01-16] MEDS ORDERED: ceFAZolin 2 GM/50 ML NS 50 ML ONE (07:24)
[2017-01-16] MEDS ORDERED: ONDANSETRON 4 MG/2 ML (SDV) Z0FRAN ONE (07:44)
[2017-01-16] MEDS ORDERED: proPOfol 200 MG/20 ML (DIPRIVAN) VIAL IV ONE (07:44)
[2017-01-16] MEDS ORDERED: fentaNYL INJECTION 100 MCG/2 ML AMP ONE (07:44)
[2017-01-16] MEDS ORDERED: LIDOCAINE PF 2% 5 ML (XYLOCAINE) VIAL ONE (07:44)
[2017-01-16] MEDS ORDERED: SEVOFLURANE (ULTANE) 15 ML INHAL SOLN ONE (07:44)
[2017-01-16] MEDS ORDERED: DEXAMETHASONE 10 MG/ML (DECADRON) 1 ML VIAL ONE (07:44)
[2017-01-16] MEDS ORDERED: ceFAZolin 2 GM/NS 50 ML IV ONE (08:00)
[2017-01-16] MEDS: LACTATED RINGERS 1,000 ML IV PRN ×2 (08:03→09:30)
[2017-01-16] MEDS ORDERED: BUPIVACAINE 0.25% 30 ML (SENSORCAINE) VIAL ONE (08:33)
[2017-01-16] MEDS ORDERED: LIDOCAINE 1% INJ 20 ML (XYLOCAINE) VIAL ONE (08:33)
[2017-01-16] MEDS ORDERED: BUPIVACAINE 0.5% 30 ML (SENSORCAINE) VIAL ONE (08:34)
--- NOTE | 2017-01-16 08:40 | Progress Note-Pre Operative ---
Pre-Operative Progress Note H&P Reviewed The H&P was reviewed, patient examined and no changes noted. Date Seen by Provider: Jan 16, 2017 Time Seen by Provider: 08:40 Date H&P Reviewed: Jan 16, 2017 Time H&P Reviewed: 08:40 Pre-Operative Diagnosis: left inguinal hernia KAYLEN ARIAS DO Jan 16, 2017 08:40
--- NOTE | 2017-01-16 10:14 | Progress Note-Post Operative ---
Post-Operative Progess Note Surgeon (s)/M48/M60 Tank Driver (s) Surgeon KAYLEN ARIAS DO M48/M60 Tank Driver: Dr German Pre-Operative Diagnosis left inguinal hernia Post-Operative Diagnosis sliding incarcerated indirect inguinal hernia Procedure & Operative Findings Date of Procedure 01/16/17 Procedure Performed/Findings left indirect incarcerated inguinal hernia repair c mesh, excision cord lipoma Anesthesia Type gen Estimated Blood Loss Estimated blood loss (mL): min Specimens/Packing Specimens Removed hernia sac, cord lipoma KAYLEN ARIAS DO Jan 16, 2017 10:14 am
[2017-01-16] MEDS ORDERED: HYDROcodone/APAP 5 MG/325 MG (LORTAB) TAB PO PRN (10:15)
[2017-01-16] MEDS ORDERED: DOCU-143 PO (10:15)
[2017-01-16] MEDS ORDERED: HYDR-3812 PO (10:15)
--- NOTE | 2017-01-16 10:17 | Discharge Inst-Simple/Standard ---
Discharge Inst-Standard Discharge Medications New, Converted or Re-Newed RX: RX on Chart Patient Instructions/Follow Up Plan of Care/Instructions/FU: 2 weeks Julianna Activity as Tolerated: No Discharge Diet: Regular Diet Other Inst to Patient Follow up Appt: Make appointment for 2 week. Instructions: No lifting greater than 10 pounds. No strenuous activity. May shower in 24 hours, no tub bath or soaking. Use incentive spirometer at home as directed. No Smoking Skin/Wound Care: May remove bandages in 24 hours. You need to leave the white strips over incision on they will fall off on their own. Expect some bruising and swelling in the area and into the scrotum. Symptoms to Report: Appetite Changes, Extremity Discoloration, Numbness/Tingling, Swelling Increased , Bleeding Excessive, Eyesight Changes, Pain Increased, Urine Color Change, Constipation(Persistent), Fever over 101 degree F, Pain/Pressure in chest, Urinating Difficulty, Cough Up/Vomit Blood, Heart Beat Irreg/Pounding, Pain/ Pressure in jaw, Vaginal Bleeding Increase, Cramps in feet or legs, Lightheadedness, Pain/Pressure in shoulder, Diarrhea(Persistent), Memory Changes Suddenly, Questions/Concerns, Weight gain consecutive days, Dizziness/ Fainting, Nausea/Vomiting, Shortness of Breath, Weight gain over 2 pounds If questions or concerns contact your physician Or seek help at emergency department. KAYLEN ARIAS DO Jan 16, 2017 10:17 am
[2017-01-16 11:20] VITALS: BP 140/65
[2017-01-16 11:50] VITALS: BP 132/63
[2017-01-16 12:20] VITALS: BP 141/68
[2017-01-16 13:05] VITALS: BP 141/68
[2017-01-16 13:50] VITALS: BP 141/68
--- NOTE | 2017-01-17 06:25 | OPERATIVE REPORT ---
DATE OF SERVICE: 01/16/2017 PREOPERATIVE DIAGNOSIS: Left inguinal hernia. POSTOPERATIVE DIAGNOSIS: Left sliding incarcerated indirect hernia. PROCEDURE: Left sliding incarcerated indirect hernia repair with excision of cord lipoma. SURGEON: Kaylen Levine DO GROUND CREW CHIEF: Dr. German, who assisted in retraction, dissection and closure. ANESTHESIA: General. ESTIMATED BLOOD LOSS: Minimal. COMPLICATIONS: None. INDICATIONS: The patient is a 71-year-old male with a left inguinal hernia. He was explained risks and benefits of procedure and wished to proceed with procedure. Consent was signed in the chart. PROCEDURE: The patient was taken to the operating suite, was prepped and draped in sterile fashion. Surgical pause was performed. Local anesthetic 0.5% Marcaine and 1% lidocaine 50:50 ratio was used to anesthetize the incision. An ilioinguinal nerve block performed. Skin incision was made and cautery was used to dissect down to the external oblique, which was then continued to be mobilized down to the external ring. The external oblique was opened down through the external ring. The cord structures were dissected around and a [place] drain was placed underneath and then elevated. The cremasteric fibers were then divided off of the cord. An indirect hernia sac was present and grasped and dissected free. This was then opened. There was a part of the sigmoid colon that was adhered inside of the sac. This was mobilized sharply off of the hernia sac and able to be reduced. The hernia sac was then ligated with a 2-0 Vicryl. Hernia sac was then cut and the contents reduced through the internal ring. Large cord lipoma present, which was then dissected off the cord and resected. There was no direct defect. The ProGrip mesh was cut to size and secured to Nicholas's ligament and then incorporated around the internal ring, all placed under the external oblique. The wound was then irrigated with copious amounts of irrigation. Hemostasis had been achieved. The external oblique was then closed with 3-0 Vicryl in a running fashion, recreating the external ring. The subcutaneous tissues were then reapproximated using 3-0 Vicryl. Skin was then closed using 4-0 Vicryl in a running subcuticular fashion. The area was then washed and dried and Mastisol and Steri-Strips were applied. Sterile bandage was applied. The patient tolerated procedure well without any complications. He was taken to the recovery room in stable condition. Job ID: [id number] DocumentID: [id number] Dictated Date: 01/16/2017 16:04:05 Electric Meter Installer Helper Date: 01/17/2017 06:24:13 Dictated By: KAYLEN LEVINE DO
== END 2017-01-16 13:50 | disposition home or self-care (01) ==
LOC: SDC 05:59
PROVIDERS: ATTEND Surgery
DX: K40.90 Unilateral inguinal hernia, without obstruction or gangrene, not specified as recurrent (principal); D17.6 Benign lipomatous neoplasm of spermatic cord; Z11.2 Encounter for screening for other bacterial diseases; Z79.899 Other long term (current) drug therapy; Z79.82 Long term (current) use of aspirin; K21.9 Gastro-esophageal reflux disease without esophagitis
CPT/HCPCS: 87081; 94664

== ENCOUNTER 2017-01-20 09:49 | Emergency (ER) | payer MEDICARE ==
[~2017-01-20] VITALS: Ht 175.3 cm; Wt 95.3 kg
[2017-01-20 10:37] LABS: BILIRUBIN,URINE NEGATIVE (NEGATIVE); KETONES,URINE NEGATIVE (NEGATIVE); LEUKOCYTE ESTERASE ,URINE NEGATIVE (NEGATIVE); NITRITE,URINE NEGATIVE (NEGATIVE); PH,URINE 7 (5-9); PROTEIN,URINE NEGATIVE (NEGATIVE); UROBILINOGEN,URINE NORMAL (NORMAL)
[2017-01-20] MEDS ORDERED: LIDOCAINE UROJET 2% GEL 10 ML PKG ONE (10:38)
[2017-01-20 10:52] LABS: BASOPHILS % (AUTO) 0 % (0-10); EOSINOPHILS # (AUTO) 0.1 10^3/uL (0.0-0.3); EOSINOPHILS % (AUTO) 1 % (0-10); LYMPHOCYTES # (AUTO) 1.5 X 10^3 (1.0-4.0); LYMPHOCYTES % (AUTO) 14 % (12-44); MEAN CORPUSCULAR HEMOGLOBIN 30 PG (25-34); MEAN CORPUSCULAR HGB CONC 34 G/DL (32-36); MEAN CORPUSCULAR VOLUME 89 FL (80-99); MEAN PLATELET VOLUME 10.2 FL (7.4-10.4); MONOCYTES # (AUTO) 1.3 X 10^3 (0.0-1.0); MONOCYTES % (AUTO) 13 % (0-12); NEUTROPHILS # (AUTO) 7.6 X 10^3 (1.8-7.8); NEUTROPHILS % (AUTO) 72 % (42-75); PLATELET COUNT 198 10^3/uL (130-400); RED BLOOD COUNT 5.03 10^6/uL (4.35-5.85); RED CELL DISTRIBUTION WIDTH 12.7 % (10.0-14.5); WHITE BLOOD COUNT 10.5 10^3/uL (4.3-11.0)
[2017-01-20] MEDS ORDERED: LIDOCAINE UROJET 2% GEL 10 ML PKG TOP ONE (11:00)
[2017-01-20 11:10] LABS: ALANINE AMINOTRANSFERASE 18 U/L (0-55); ALBUMIN 4.3 GM/DL (3.2-4.5); ANION GAP 10 MMOL/L (5-14); ASPARTATE AMINO TRANSFERASE 20 U/L (5-34); BILIRUBIN,TOTAL 0.9 MG/DL (0.1-1.0); BLOOD UREA NITROGEN 17 MG/DL (7-18); BUN/CREATININE RATIO 20; CARBON DIOXIDE 24 MMOL/L (21-32); CHLORIDE 102 MMOL/L (98-107); CREATININE SERUM 0.85 MG/DL (0.60-1.30); GFR ESTIMATED > 60; GLUCOSE 117 MG/DL (70-105); POTASSIUM 4.3 MMOL/L (3.6-5.0); SODIUM 136 MMOL/L (135-145); TOTAL PROTEIN 7.5 GM/DL (6.4-8.2)
--- NOTE | 2017-01-20 11:16 | ED GI ---
General Chief Complaint: Abdominal/GI Problems Stated Complaint: NO BOWEL MOVEMENT AFTER HERNIA SURGERY Nursing Triage Note: PT STATES HE HAD HERNIA SURGERY ON MONDAY AND HAS BEEN CONSTIPATED SINCE. STATES LOWER ABD PAIN AND THAT HE HAS BEEN PASSING BLOOD. Sepsis Screen: No Definite Risk Source of Information: Patient Exam Limitations: No Limitations History of Present Illness Time Seen By Provider: 11:13 Initial Comments The patient is a 71-year-old white male who presents with inability to have bowel movement. He reports that on 01/16 he had an inguinal hernia repair here as an outpatient. He had a stool that morning prior to the procedure and has not had one since. He has had increasing discomfort. And now is having difficulty urinating as well. Timing/Duration: 4-5 Days Severity/Quality: Moderate Location: Generalized Abdomen Allergies and Home Medications Allergies Coded Allergies: No Known Drug Allergies (Unverified , 01/12/17) Home Medications Aspirin 81 Mg Tablet.dr, 81 MG PO 1200, (Reported) Docusate Sodium 100 Mg Capsule, 100 MG PO BID, #60 Prescribed by: KAYLEN ARIAS on 01/16/17 1015 Hydrocodone/Acetaminophen 1 Each Tablet, 1 TAB PO Q4H PRN, #30 Ref 0 Prescribed by: KAYLEN ARIAS on 01/16/17 1015 Levothyroxine Sodium 88 Mcg Tablet, 88 MCG PO DAILY, (Reported) Review of Systems Constitutional: see HPI EENTM: No Symptoms Reported Respiratory: No Symptoms Reported Cardiovascular: No Symptoms Reported Gastrointestinal: See HPI Genitourinary: See HPI Musculoskeletal: no symptoms reported Skin: no symptoms reported Psychiatric/Neurological: No Symptoms Reported Endocrine: No Symptoms Reported Hematologic/Lymphatic: No Symptoms Reported Past Psabdyg-Bcaokl-Mnuqry Hx Patient Social History Alcohol Use: Denies Use Recreational Drug Use: No Smoking Status: Never a Smoker Recent Foreign Travel: No Contact w/Someone Who Travel: No Recent Infectious Disease Expo: No Recent Hopitalizations: Yes ([place] 2016-PNEUMONIA) Physical Abuse: No Sexual Abuse: No Mistreated: No Fear: No Seasonal Allergies Seasonal Allergies: Yes Surgeries History of Surgeries: Yes (HEMORRHOIDECTOMY, HERNIA) Surgeries: Rectal, Tonsillectomy Respiratory History of Respiratory Disorde: No Currently Using CPAP: No Currently Using BIPAP: No Cardiovascular History of Cardiac Disorders: No Neurological History of Neurological Disord: No Reproductive System Hx Reproductive Disorders: No Sexually Transmitted Disease: No HIV/AIDS: No Genitourinary History of Genitourinary Disor: No Gastrointestinal History of Gastrointestinal Di: Yes Gastrointestinal Disorders: Gastroesophageal Reflux Musculoskeletal History of Musculoskeletal Dis: Yes (ARTHRITIS-FINGER) Musculoskeletal Disorders: Arthritis Endocrine History of Endocrine Disorders: Yes Endocrine Disorders: Hypothyroidsim HEENT History of HEENT Disorders: Yes HEENT Disorders: Cataract Loss of Vision: Denies Hearing Impairment: Denies Cancer History of Cancer: Yes Cancer: Skin Type of Tx Receive: Surgical Intervention Psychosocial History of Psychiatric Problem: No Behavioral Health Disorders: Anxiety Suicide Risk Score: 0 Integumentary History of Skin or Integumenta: No Blood Transfusions History of Blood Disorders: No Adverse Reaction to a Blood Tr: No (N/A) Physical Exam Vital Signs VS - Last 72 Hours, by Label 01/20/17 10:02 Temp 96.9 Pulse 64 Resp 16 B/P (MAP) 137/85 Capillary Refill : Less Than 3 Seconds General Appearance: mild distress HEENT: normal ENT inspection Neck: full range of motion Respiratory: chest non-tender, lungs clear, normal breath sounds, no respiratory distress, no accessory muscle use Cardiovascular: normal peripheral pulses, regular rate, rhythm, no edema, no gallop, no JVD, no murmur Gastrointestinal: non tender, soft, no organomegaly, no pulsatile mass, distended, other (tympany) Extremities: normal range of motion, non-tender, normal inspection, no pedal edema, no calf tenderness, normal capillary refill, pelvis stable Pelvic: discharge Neurologic/Psychiatric: coater slate II-XII nml as tested Skin: normal color, warm/dry Lymphatic: no adenopathy Progress/Results/Core Measures Results/Orders Lab Results Laboratory Tests Test 01/20/17 10:30 Range/Units White Blood Count 10.5 4.3-11.0 10^3/uL Red Blood Count 5.03 4.35-5.85 10^6/uL Hemoglobin 15.1 13.3-17.7 G/DL Hematocrit 45 40-54 % Mean Corpuscular Volume 89 80-99 FL Mean Corpuscular Hemoglobin 30 25-34 PG Mean Corpuscular Hemoglobin Concent 34 32-36 G/DL Red Cell Distribution Width 12.7 10.0-14.5 % Platelet Count 198 130-400 10^3/uL Mean Platelet Volume 10.2 7.4-10.4 FL Neutrophils (%) (Auto) 72 42-75 % Lymphocytes (%) (Auto) 14 12-44 % Monocytes (%) (Auto) 13 H 0-12 % Eosinophils (%) (Auto) 1 0-10 % Basophils (%) (Auto) 0 0-10 % Neutrophils # (Auto) 7.6 1.8-7.8 X 10^3 Lymphocytes # (Auto) 1.5 1.0-4.0 X 10^3 Monocytes # (Auto) 1.3 H 0.0-1.0 X 10^3 Eosinophils # (Auto) 0.1 0.0-0.3 10^3/uL Basophils # (Auto) 0.0 0.0-0.1 10^3/uL Urine Color YELLOW Urine Clarity CLEAR Urine pH 7 5-9 Urine Specific [place] 1.010 L 1.016-1.022 Urine Protein NEGATIVE NEGATIVE Urine Glucose (UA) NEGATIVE NEGATIVE Urine Ketones NEGATIVE NEGATIVE Urine Nitrite NEGATIVE NEGATIVE Urine Bilirubin NEGATIVE NEGATIVE Urine Urobilinogen NORMAL NORMAL MG/DL Urine Leukocyte Esterase NEGATIVE NEGATIVE Urine RBC (Auto) NEGATIVE NEGATIVE Urine RBC NONE /HPF Urine WBC NONE /HPF Urine Crystals NONE /LPF Urine Bacteria NEGATIVE /HPF Urine Casts NONE /LPF Urine Mucus SMALL H /LPF Urine Culture Indicated NO Sodium Level 136 135-145 MMOL/L Potassium Level 4.3 3.6-5.0 MMOL/L Chloride Level 102 98-107 MMOL/L Carbon Dioxide Level 24 21-32 MMOL/L Anion Gap 10 5-14 MMOL/L Blood Urea Nitrogen 17 7-18 MG/DL Creatinine 0.85 0.60-1.30 MG/DL Estimat Glomerular Filtration Rate > 60 BUN/Creatinine Ratio 20 Glucose Level 117 H 70-105 MG/DL Calcium Level 10.0 8.5-10.1 MG/DL Total Bilirubin 0.9 0.1-1.0 MG/DL Aspartate Amino Transf (AST/SGOT) 20 5-34 U/L Alanine Aminotransferase (ALT/SGPT) 18 0-55 U/L Alkaline Phosphatase 83 40-136 U/L Total Protein 7.5 6.4-8.2 GM/DL Albumin 4.3 3.2-4.5 GM/DL My Orders Orders - ZARA DAVIDSON MD Abdomen/Kub 1view (01/20/17 10:20) Cbc With Automated Diff (01/20/17 10:20) Comprehensive Metabolic Panel (01/20/17 10:20) Ua Culture If Indicated (01/20/17 10:20) Lidocaine 2% (Urojet) (Xylocaine Urojet) (01/20/17 10:38) Lidocaine 2% (Urojet) (Xylocaine Urojet) (01/20/17 11:00) Medications Given in ED Current Medications Medications Dose Ordered Sig/Joseph Route Start Time Stop Time Status Last Admin Dose Admin Lidocaine HCl 10 ml ONCE ONCE TOP 01/20/17 11:00 01/20/17 11:01 DC 01/20/17 10:48 10 ML Vital Signs/I&O Vital Sign - Last 12Hours 01/20/17 10:02 Temp 96.9 Pulse 64 Resp 16 B/P (MAP) 137/85 Blood Pressure Mean: 102 Departure Impression Impression: Primary Impression: postop constipation Disposition: 01 HOME, SELF-CARE Condition: Stable/Unchanged Departure-Patient Inst. Referrals: BECKY SHARMA MD (PCP/Family) Primary Care Physician Patient Instructions: No Instuctions Given Add. Discharge Instructions: All discharge instructions reviewed with patient and/or family. Voiced understanding. Obtain magnesium citrate. This is [id number] and comes in 10 ounce bottles. Take one half bottle and a glass of water on arriving home. If no bowel movement in 4-6 hours take the other half bottle. If bowel habits are still sluggish one dose of MiraLAX each evening will help restore bowel habits. This too is available [id number]. ZARA DAVIDSON MD Jan 20, 2017 11:16
[2017-01-20] MEDS ORDERED: BISACODYL 10 MG SUPP (DULCOLAX) PR ONE (11:45)
--- NOTE | 2017-01-20 11:46 | Diagnostic Imaging Report ---
Supine view of the abdomen. INDICATION: Constipation. Lower abdominal pain. Hematochezia. FINDINGS: There is moderate to large amounts of fecal material seen in the rectum and about the hepatic flexure. No dilated bowel loops. No suspicious calcifications. Degenerative changes in the lumbar spine seen. IMPRESSION: Moderate to large amounts of fecal material seen in the rectum and in the colon around the hepatic flexure. Dictated by: Dictated on workstation # [id number]
[2017-01-20 11:57] VITALS: BP 137/85
== END 2017-01-20 11:58 | disposition home or self-care (01) ==
LOC: EDUNIT# 09:49 → ER 09:51
DX: K91.89 Other postprocedural complications and disorders of digestive system (principal); K59.09 Other constipation; M19.049 Primary osteoarthritis, unspecified hand; K21.9 Gastro-esophageal reflux disease without esophagitis; F41.9 Anxiety disorder, unspecified; E03.9 Hypothyroidism, unspecified; Z85.828 Personal history of other malignant neoplasm of skin; Z87.19 Personal history of other diseases of the digestive system; Z79.82 Long term (current) use of aspirin; Z98.890 Other specified postprocedural states
CPT/HCPCS: 36415; 51702; 74000; 80053; 81000; 85025

== ENCOUNTER → 2017-01-20 | Outpatient (CLI) | payer MEDICARE ==
[~2017-01-20] MED LIST changes: +DOCU-143 PO; +HYDR-3812 PO
[2017-01-20 12:49] LABS: THYROID STIMULATING HORMONE 0.79 UIU/ML (0.35-4.94)
== END ==
LOC: LAB 12:08
PROVIDERS: ATTEND Physician Assistant
DX: E03.9 Hypothyroidism, unspecified (principal); Z98.890 Other specified postprocedural states
CPT/HCPCS: 36415; 80061; 84443

== ENCOUNTER → 2018-05-26 | Outpatient (CLI) | payer MEDICARE ==
[~2018-05-26] MED LIST changes: +ACHD5005 PO; -HYDR-3812 PO
[2018-05-26 12:01] LABS: BASOPHILS % (AUTO) 0 % (0-10); EOSINOPHILS % (AUTO) 0 % (0-10); HEMATOCRIT 45 % (40-54); HEMOGLOBIN 15.1 G/DL (13.3-17.7); LYMPHOCYTES # (AUTO) 2.5 X 10^3 (1.0-4.0); LYMPHOCYTES % (AUTO) 13 % (12-44); MEAN CORPUSCULAR HEMOGLOBIN 31 PG (25-34); MEAN CORPUSCULAR HGB CONC 34 G/DL (32-36); MEAN CORPUSCULAR VOLUME 91 FL (80-99); MEAN PLATELET VOLUME 10.1 FL (7.4-10.4); MONOCYTES # (AUTO) 2.1 X 10^3 (0.0-1.0); MONOCYTES % (AUTO) 11 % (0-12); NEUTROPHILS % (AUTO) 76 % (42-75); PLATELET COUNT 147 10^3/uL (130-400); WHITE BLOOD COUNT 19.6 10^3/uL (4.3-11.0)
[2018-05-26 12:12] LABS: INR 1.5 (0.8-1.4)
[2018-05-26 12:22] LABS: BAND NEUTROPHILS 1 %; NEUTROPHILS % (MANUAL) 80 %
[2018-05-26 12:23] LABS: BASOPHILS % (MANUAL) 0 %; EOSINOPHILS % (MANUAL) 0 %; LYMPHOCYTES % (MANUAL) 11 %; MONOCYTES % (MANUAL) 8 %; RBC MORPH NORMAL
== END ==
LOC: LAB 11:44
PROVIDERS: ATTEND Nurse Practitioner Family
DX: E03.9 Hypothyroidism, unspecified (principal); I49.8 Other specified cardiac arrhythmias; Z95.0 Presence of cardiac pacemaker; Z79.01 Long term (current) use of anticoagulants
CPT/HCPCS: 36415; 85007; 85027; 85610

== ENCOUNTER → 2018-09-14 | Outpatient (CLI) | payer MEDICARE ==
--- NOTE | 2018-09-14 16:31 | Diagnostic Imaging Report ---
INDICATION: Enlarged right salivary gland. FINDINGS: Sonographic interrogation of the right submandibular gland was performed. Right submandibular gland measures 2.6 x 1.0 x 2.4 cm. Gland shows fairly homogeneous echotexture. No discrete mass is seen. IMPRESSION: Unremarkable right submandibular gland. Dictated by: Dictated on workstation # [id number]
== END ==
LOC: RAD 11:53
PROVIDERS: ATTEND Internal Medicine
DX: K11.1 Hypertrophy of salivary gland (principal)
CPT/HCPCS: 76536

== ENCOUNTER 2018-10-19 07:00 | Day surgery (SDC) | payer MEDICARE ==
--- NOTE | 2018-10-03 05:56 | HISTORY AND PHYSICAL ---
DATE OF SERVICE: PANENDOSCOPY HISTORY AND PHYSICAL HISTORY OF PRESENT ILLNESS: The patient is a 72-year-old white male referred by Dr. Montero for surveillance colonoscopy due to past history of colon polyps as well as diagnostic EGD due to history of intermittent dysphagia predominantly to solids. He last underwent colonoscopy 5 years ago. He had 3 polyps removed, most significant was a tubular adenoma from the proximal transverse colon. No dysplasia was noted. He had mild diverticular disease without evidence for diverticulitis and mild to moderate BPH. He has had no bright red blood per rectum or melena and denies abdominal pain. He has noted over the past several months, intermittent dysphagia to solids. He does not report any associated heartburn type discomfort and denies odynophagia. He is not currently taking any antacid therapy. He reports he has lost several pounds since the beginning of the year. By our scale, he is down 9 pounds from his last weight 5 years ago. PAST MEDICAL HISTORY: Other than colonic polyposis, he reports one year ago he was noted to have atrial fibrillation and associated significant bradyarrhythmia, for which a pacemaker was placed and he was started on Xarelto. 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 These are the only 2 medications. ALLERGIES: He reports no known drug allergies. PAST SURGICAL HISTORY: Significant for hemorrhoidectomy 25 years ago and tonsillectomy at the age of 3. SOCIAL HISTORY: He is a retired teacher, distant past social smoking history and rare alcohol consumption. FAMILY HISTORY: He is not aware of any family history for GI tract malignancy or Angulo's esophagus. PHYSICAL EXAMINATION: GENERAL: Reveals a pleasant white male, appeared to be in no acute distress. VITAL SIGNS: Blood pressure 100/60 with a heart rate of 70 and regular. HEENT: Unremarkable. Sclerae nonicteric. NECK: Revealed no JVD, adenopathy or bruits. He has a Mallampati class 2 oropharyngeal configuration. No erythema is noted. CHEST: Clear to auscultation. CARDIOVASCULAR: Reveals a regular rate and rhythm, presumably paced considering reported diagnosis of chronic atrial fibrillation. Revealed no murmur, S3 or S4. ABDOMEN: Soft, supple without mass, organomegaly or tenderness. EXTREMITIES: Reveal no cyanosis, clubbing or edema. ASSESSMENT: The patient was set up for surveillance colonoscopy due to past history of colon polyps as well as a diagnostic EGD on 10/19/2018. Prep instructions with the Suprep kit were given and questions were answered. Electronic medical record was reviewed. I thank you for the referral of this pleasant gentleman. Job ID: [id number] DocumentID: [id number] Dictated Date: 09/25/2018 20:16:06 Lace Finisher Date: 09/25/2018 20:34:29 Dictated By: SHYLA JARAMILLO MD
[~2018-10-19] VITALS: Ht 175.3 cm; Wt 95.3 kg
[~2018-10-19 07:00] MED LIST changes: +RIVA20TA PO
--- OUTSIDE RECORDS SUMMARY | 2018-10-19 07:04 | XMS REPORT | Encounter Summary ---
Author Author [facility] Organization [facility] Address Unknown Phone Unavailable Care Team Providers Care Bioinformatics Research Technician Name Role Phone Ovidio Montero MD PCP Encounter Details Care Team Description Date Type Department Ester Delong MD [address] [facility] [place] [address] [phone] 07/12/2018 [facility] Cardiovascular Medicine Encounter Remote Device Check [phone] Social History Date Tobacco Use Types Packs/Day Years Used Quit: 1960 Former Smoker Smokeless Tobacco: Never Used Drinks/Week oz/Week Comments Alcohol Use maybe 6 pk beer a year No Sex Assigned at Date Recorded Not on file Industry Job Start Date Occupation Not on file Not on file Not on file Travel End Travel History Travel Start No recent travel history available. documented as of this encounter Medications at Time of Discharge Start Date End Date Medication Sig Dispensed Refills levothyroxine (SYNTHROID) Take 88 mcg 0 88 mcg tablet by mouth daily 30 minutes before breakfast. multivit-minerals/folic Take by 0 acid (ADULT MULTIVITAMIN mouth as GUMMIES PO) Needed. 09/13/2017 rivaroxaban (XARELTO) 20 Take 1 tablet 30 tablet 12 mg tablet by mouth daily. Take with food. 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 dysfunction (HCC) Atypical atrial flutter (HCC) Bradycardia Right bundle branch block (RBBB) with left anterior fascicular block (LAFB) documented in this encounter Results * DEVICE EVALUATION - REMOTE PPM (08/02/2018 10:53 AM CDT) Generator [employer] OTHER OUTSIDE [facility] Generator 09/29/2017 OTHER OUTSIDE Implnat Date LAB Generator No OTHER OUTSIDE Investigational LAB RV Lead [employer] OTHER OUTSIDE [facility] RV Lead Implant 09/29/2017 OTHER OUTSIDE Date LAB RV Lead No OTHER OUTSIDE Investigational LAB RV Lead active fixation OTHER OUTSIDE Fixation LAB Wireless Yes OTHER OUTSIDE Generator LAB Generator MRI Yes OTHER OUTSIDE Conditional LAB RV Lead MRI Yes OTHER OUTSIDE Conditional LAB RV Lead Model # INGEVITY MRI Model 7742 59cm OTHER OUTSIDE LAB RV Lead Pin IS1 OTHER OUTSIDE Connector ICD LAB Generator Model ACCOLADE MRI SR Model L310 OTHER OUTSIDE # LAB Generator 757,660 OTHER OUTSIDE Serial # LAB Device Type VVI-PM OTHER OUTSIDE LAB RV Lead Serial [id number] OTHER OUTSIDE # LAB RV Lead RV mid septum OTHER OUTSIDE Location LAB RV Lead Diaph. 10 OTHER OUTSIDE Stimulation LAB Device Mode VVIR OTHER OUTSIDE LAB Lower Rate 60 OTHER OUTSIDE Limit LAB Upper Rate 130 OTHER OUTSIDE Limit LAB Sensor Rate 130 OTHER OUTSIDE Limit LAB VT Monitor 160 OTHER OUTSIDE LAB Mode Switch N/A OTHER OUTSIDE Status LAB Remote Cellular Adaptor OTHER OUTSIDE Connectivity LAB Device MPE OTHER OUTSIDE Implanted By LAB Remote Yes OTHER OUTSIDE Monitoring? LAB Date of Last 07/12/18 OTHER OUTSIDE Remote Check LAB EP Device MAC OTHER OUTSIDE Followed By LAB EP Device LDB OTHER OUTSIDE Followed by LAB Name Next 12/2018 OTHER OUTSIDE Programming LAB Check Due Pacemaker No OTHER OUTSIDE Dependant LAB Date of Last 12/26/17 OTHER OUTSIDE Programming LAB Date of Last 12/26/17 OTHER OUTSIDE Interrogation LAB HF Patient No OTHER OUTSIDE LAB Device Latitude Consult OTHER OUTSIDE [place] [facility] Transmitter Compatible Next Remote 10/13/18 OTHER OUTSIDE Check Due LAB Remote Check? Yes OTHER OUTSIDE LAB Specimen Narrative Performed At OTHER OUTSIDE LAB Current Monitoring Period - 07/12/18 through 10/13/18 [08/02/2018 10:54:50 AM - BALJINDER MURDOCK] Please see scanned data sheets for further review. Scheduled Latitude transmission received for Single chamber PPM. Device function appears appropriate. Presenting EGM shows V-Paced rate of 60 bpm. Battery longevity 11.5 years. Events noted since 12/26/17: Ventricular:No new events. RV Pacing%: 80% Next remote scheduled for 3 mo. Results routed to Dr. Delong for signature and review. _ Performing Organization Address City/State/Zipcode Phone Number OTHER OUTSIDE LAB documented in this encounter Visit Diagnoses Diagnosis Sinoatrial node dysfunction (HCC) Sinoatrial node dysfunction Atypical atrial flutter (HCC) Atrial flutter Bradycardia Other specified cardiac dysrhythmias Right bundle branch block (RBBB) with left anterior fascicular block (LAFB) documented in this encounter
--- OUTSIDE RECORDS SUMMARY | 2018-10-19 07:04 | XMS REPORT | Encounter Summary ---
Author Author [facility] Organization [facility] Address Unknown Phone Unavailable Care Team Providers Care Tub Attendant Name Role Phone Ovidio Montero MD PCP Encounter Details Care Team Description Date Type Department Ester Delong MD [address] [place], [place] [id number] [place] [address] [phone] Right bundle branch block (RBBB) with left anterior fascicular block (LAFB) (Primary Dx); Typical atrial flutter (HCC); Bradycardia; Tachy-nupur syndrome (HCC); Cardiac pacemaker in situ 10/11/2018 Orders Only Cardiovascular Medicine Remote Device Check [phone] Social History Date Tobacco Use Types Packs/Day [...] history available. documented as of this encounter Plan of Treatment Order Schedule Name Type Priority Associated Diagnoses 99 Occurrences starting 10/11/2018 until 10/12/2019 DEVICE EVALUATION - Device Check Routine Right bundle branch block REMOTE PPM (RBBB) with left anterior fascicular block (LAFB) Typical atrial flutter (HCC) Bradycardia Tachy-nupur syndrome (HCC) Cardiac pacemaker in situ documented as of this encounter Visit Diagnoses Diagnosis Right bundle branch block (RBBB) with left anterior fascicular block (LAFB) - Primary Typical atrial flutter (HCC) Atrial flutter Bradycardia Other specified cardiac dysrhythmias Tachy-nupur syndrome (HCC) Sinoatrial node dysfunction Cardiac pacemaker in situ documented in this encounter
--- OUTSIDE RECORDS SUMMARY | 2018-10-19 07:04 | XMS REPORT | Clinical Summary ---
Author Author [facility] Organization [facility] Address Unknown Phone Unavailable Care Team Providers Care Slab Lifting Engineer Name Role Phone Ovidio Montero MD PCP Source Comments Some departments are not documenting in the electronic medical record. If you d o not see the information that you expected, contact Release of Information in [facility] [employer] Information Management department at [phone] for further assistan ce in locating additional records.[facility] Allergies No Known Allergies Medications End Date Status Medication Sig Dispensed Refills Start Date Active levothyroxine (SYNTHROID) Take 88 mcg 0 88 mcg tablet by mouth daily 30 minutes before breakfast. Active multivit-minerals/folic Take by 0 acid (ADULT MULTIVITAMIN mouth as GUMMIES PO) Needed. Active rivaroxaban (XARELTO) 20 Take 1 tablet 30 tablet 12 09/13/201 mg tablet by mouth 8 daily. Take with food. Active Problems Problem Noted Date Presence of permanent cardiac pacemaker 09/29/2017 Overview: 09/29/17 Successful [employer] single-chamber implantation via moderate sedation. Implanted by Dr. Diop Tachy-nupur syndrome 09/29/2017 Bradycardia 09/28/2017 Overview: 09/29/17 Successful [employer] single-chamber implantation via moderate sedation. Implanted by Dr. Diop Right bundle branch block (RBBB) with left anterior fascicular block (LAFB) 09/13/2017 Overview: Inc RB 2013, lAFB. Complete RBBB, LAFB 2017, also very slow rate in flutter-3.6 sec pause on random ECG-no symptoms Typical atrial flutter 09/13/2017 Atypical atrial flutter 09/13/2017 Resolved Problems Problem Noted Date Resolved Date Sinoatrial node dysfunction 09/13/2017 12/26/2017 Overview: 2013 Holter Encounters Care Team Description Date Type Specialty Ester Delong MD 10/11/2018 Hospital Cardiology Encounter Ester Delong MD Right bundle branch block (RBBB) with left anterior fascicular block (LAFB) (Primary Dx); Typical atrial flutter (HCC); Bradycardia; Tachy-nupur syndrome (HCC); Cardiac pacemaker in situ 10/11/2018 Orders Only Cardiology from Last 3 Months Family History Medical History Relation Name Comments Diabetes Brother low grade Diabetes Father Heart Attack Father 72 Cancer Mother years Diabetes Paternal Grandmother Cancer Sister Cancer-Breast Sister Relation Name Status Comments Brother Alive Father (Age 72) Maternal Grandfather Maternal Grandmother Mother (Age 93) Paternal Grandfather Paternal Grandmother Sister Alive Sister Alive Social History Date Tobacco Use Types Packs/Day Years Used Quit: 1959 Former Smoker Smokeless Tobacco: Never Used Drinks/Week oz/Week Comments Alcohol Use maybe 6 pk beer a year No Sex Assigned at Date Recorded Not on file Industry Job Start Date Occupation Not on file Not on file Not on file Travel End Travel History Travel Start No recent travel history available. Last Filed Vital Signs Reading Time Taken Comments Vital Sign 120/84 12/26/2017 1:06 PM CDT Blood Pressure 60 12/26/2017 1:06 PM CDT Pulse 36.7 C (98.1 F) 09/30/2017 6:58 AM CDT Temperature - - Respiratory Rate 98% 09/30/2017 6:58 AM CDT Oxygen Saturation - - Inhaled Oxygen Concentration 96.2 kg (212 lb) 12/26/2017 1:06 PM CDT Weight 176.5 cm (5' 9.5") 12/26/2017 1:06 PM CDT Height 30.86 12/26/2017 1:06 PM CDT Body Mass Index Plan of Treatment Health Maintenance Due Date Last Done Comments PHYSICAL (COMPREHENSIVE) 11/03/1950 EXAM DTAP/TDAP VACCINES (1 - 11/03/1961 Tdap) COLORECTAL CANCER 11/03/1993 SCREENING SHINGLES RECOMBINANT 11/03/1993 VACCINE (1 of 2) ABDOMINAL AORTIC ANEURYSM 11/03/2008 SCREENING PNEUMONIA (PCV13/PPSV23) 11/03/2008 VACCINES (1 of 2 - PCV13) INFLUENZA VACCINE 01/22/2019 06/25/2016 Implants Device Identifier Shelf Expiration Date Model / Serial / Lot Implanted Type Area Manufactur er Pacemaker Pacemaker Procedures Comments Procedure Name Priority Date/Time Associated Diagnosis DEVICE EVALUATION - Routine 08/02/2018 Sinoatrial node REMOTE PPM 10:53 AM CDT dysfunction (HCC) Atypical atrial flutter (HCC) Bradycardia Right bundle branch block (RBBB) with left anterior fascicular block (LAFB) from Last 3 Months Results * DEVICE EVALUATION - REMOTE PPM (08/02/2018 10:53 AM CDT) Generator [employer] OTHER OUTSIDE Flash Developer LAB Generator 09/29/2017 OTHER OUTSIDE Implnat Date LAB Generator No OTHER OUTSIDE Investigational LAB RV Lead [employer] OTHER OUTSIDE Flash Developer LAB RV Lead Implant 09/29/2017 OTHER OUTSIDE [...] OUTSIDE LAB Device Latitude Consult OTHER OUTSIDE [place] [facility] Transmitter Compatible Next Remote 10/13/18 OTHER [...] Address City/State/Zipcode Phone Number OTHER OUTSIDE LAB from Last 3 Months Insurance Type Payer Benefit Subscriber ID Effective Phone Address Plan / Dates Group Medicare MEDICARE MEDICARE xxxxxxxxxxx 2008-P PART A AND resent B Medicare BCBS MICHELLE BCBS xxxxxxxxxxxx [id number] SUPPLEMENT resent Advance Directives Patient Supervisor Facepiece Line Explanation Type Date Recorded Advance 09/29/2017 5:58 AM Directive/DPOA Date Inactivated Comments Code Status Date Activated 09/30/2017 11:57 AM Full Code 09/29/2017 6:07 AM Provider has discussed Code Status No, more discussion w/Patient or Family? needed
--- OUTSIDE RECORDS SUMMARY | 2018-10-19 07:04 | XMS REPORT | Encounter Summary ---
Author Author [facility] Organization [facility] Address Unknown Phone Unavailable Care Team Providers Care Logistics Solution Manager Name Role Phone Ovidio Montero MD PCP Encounter Details Care Team Description Date Type Department Ester Delong MD [address] [facility] [place] [address] [phone] 10/11/2018 Hospital Cardiovascular Medicine Encounter Remote Device Check [phone] Social History Date Tobacco Use Types Packs/Day [...] Order Schedule Name Type Priority Associated Diagnoses 1 Occurrences starting 10/11/2018 DEVICE EVALUATION - Device Check Routine Right bundle branch block REMOTE PPM (RBBB) with left anterior fascicular block (LAFB) Typical atrial flutter (HCC) Bradycardia Tachy-nupur syndrome (HCC) Cardiac pacemaker in situ documented as of this encounter Visit Diagnoses Diagnosis Right bundle branch block (RBBB) with left anterior fascicular block (LAFB) Typical atrial flutter (HCC) Atrial flutter Bradycardia Other specified cardiac dysrhythmias Tachy-nupur syndrome (HCC) Sinoatrial node dysfunction Cardiac pacemaker in situ documented in this encounter
--- OUTSIDE RECORDS SUMMARY | 2018-10-19 07:05 | XMS REPORT | Continuity of Care Document ---
Author Organization Unknown Address Unknown Allergies Active Description Code Type Severity Reaction Onset Reported/Identified Relationship to Patient Clinical Status Yes NKANo Known Allergies NKA Miscellaneous Allergy Unknown N/A 10/11/2006 Yes No Known Drug Allergies [id number] Drug Allergy Unknown N/A 01/12/2017 Medications There is no data. Problems Date Dx Coded Attending Type Code Diagnosis Diagnosed By 12/10/2013 SHYLA JARAMILLO MD Ot 211.3 BENIGN NEOPLASM LG BOWEL 12/10/2013 SHYLA JARAMILLO MD Ot 562.10 DIVERTICULOSIS COLON (W/O MENT OF HEMORR 12/10/2013 SHYLA JARAMILLO MD Ot 569.82 ULCERATION OF INTESTINE 12/10/2013 SHYLA JARAMILLO MD Ot 600.00 HYPERTROPHY (BENIGN) OF PROSTATE W/O URI 12/10/2013 SHYLA JARAMILLO MD Ot 787.20 DYSPHAGIA, UNSPECIFIED 12/10/2013 SHYLA JARAMILLO MD Ot V76.51 SCREEN MAL NEOP-COLON 03/07/2014 BRANDON SMITH MD Ot 244.9 03/07/2014 BRANDON SMITH MD Ot 396.3 03/07/2014 BRANDON SMITH MD Ot 435.9 03/07/2014 BRANDON SMITH MD Ot 780.4 03/07/2014 BRANDON SMITH MD Ot 780.79 06/25/2016 EBCKY SHARMA MD Ot 724.2 LUMBAGO 06/25/2016 BECKY SHARMA MD Ot 786.50 CHEST PAIN NOS 06/25/2016 SHYLA JARAMILLO MD Ot V72.84 EXAM PRE-OPERATIVE NOS 06/25/2016 BRANDON SMITH MD Ot 244.9 HYPOTHYROIDISM NOS 06/25/2016 BRANDON SMITH MD Ot 396.3 MITRAL/AORTIC ADARSH INSUFF 06/25/2016 BRANDON SMITH MD Ot 435.9 TRANS CEREB ISCHEMIA NOS 06/25/2016 BRANDON SMITH MD Ot 780.4 DIZZINESS AND GIDDINESS 06/25/2016 SARAH BELTRAN, BRANDON Lux Ot 780.79 OTH MALAISE FATIGUE 06/27/2016 ZARA DAVIDSON MD Ot E03.9 HYPOTHYROIDISM, UNSPECIFIED 06/27/2016 ZARA DAVIDSON MD Ot J39.9 DISEASE OF UPPER RESPIRATORY TRACT, UNSP 06/27/2016 ZARA DAVIDSON MD Ot R06.00 DYSPNEA, UNSPECIFIED 06/27/2016 ZARA DAVIDSON MD Ot R09.02 HYPOXEMIA 01/12/2017 KAYLEN ARIAS DO Ot K40.90 UNIL INGUINAL HERNIA, W/O OBST OR GANGR, 01/12/2017 KAYLEN ARIAS DO Ot Z01.818 ENCOUNTER FOR OTHER PREPROCEDURAL EXAMIN 01/16/2017 KAYLEN ARIAS DO Ot 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 01/16/2017 KAYLEN ARIAS DO Ot K21.9 GASTRO-ESOPHAGEAL REFLUX DISEASE WITHOUT 01/16/2017 KAYLEN ARIAS DO Ot K40.90 UNIL INGUINAL HERNIA, W/O OBST OR GANGR, 01/16/2017 KAYLEN ARIAS DO Ot Z11.2 ENCOUNTER FOR SCREENING FOR OTHER BACTER 01/16/2017 KAYLEN ARIAS DO Ot Z79.82 FDC (CURRENT) USE OF ASPIRIN 01/16/2017 KAYLEN ARIAS DO Ot Z79.899 OTHER FORK LIFT TECHNICIAN (CURRENT) DRUG THERAPY 01/17/2017 KAYLEN ARIAS DO Ot 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 01/17/2017 KAYLEN ARIAS DO Ot K21.9 GASTRO-ESOPHAGEAL REFLUX DISEASE WITHOUT 01/17/2017 KAYLEN ARIAS DO Ot K40.90 UNIL INGUINAL HERNIA, W/O OBST OR GANGR, 01/17/2017 KAYLEN ARIAS DO Ot Z11.2 ENCOUNTER FOR SCREENING FOR OTHER BACTER 01/17/2017 KAYLEN ARIAS DO Ot Z79.82 FORK LIFT TECHNICIAN (CURRENT) USE OF ASPIRIN 01/17/2017 KAYLEN ARIAS DO Ot Z79.899 OTHER FDC (CURRENT) DRUG THERAPY 01/20/2017 BECKY SHARMA MD Ot 724.2 LUMBAGO 01/20/2017 BECKY SHARMA MD Ot 786.50 CHEST PAIN NOS 01/20/2017 SHYLA JARAMILLO MD Ot V72.84 EXAM PRE-OPERATIVE NOS 01/20/2017 BRANDON SMITH MD Ot 244.9 HYPOTHYROIDISM NOS 01/20/2017 BRANDON SMITH MD Ot 396.3 MITRAL/AORTIC ADARSH INSUFF 01/20/2017 BRANDON SMITH MD Ot 435.9 TRANS CEREB ISCHEMIA NOS 01/20/2017 BRANDON SMITH MD Ot 780.4 DIZZINESS AND GIDDINESS 01/20/2017 BRANDON SMITH MD Ot 780.79 OTH MALAISE FATIGUE 01/20/2017 ZARA DAVIDSON MD Ot E03.9 HYPOTHYROIDISM, UNSPECIFIED 01/20/2017 ZARA DAVIDSON MD Ot F41.9 ANXIETY DISORDER, UNSPECIFIED 01/20/2017 ZARA DAVIDSON MD Ot K21.9 GASTRO-ESOPHAGEAL REFLUX DISEASE WITHOUT 01/20/2017 ZARA DAVIDSON MD Ot K59.09 OTHER CONSTIPATION 01/20/2017 ZARA DAVIDSON MD Ot K91.89 OTH POSTPROCEDURAL COMPLICATIONS AND DIS 01/20/2017 ZARA DAVIDSON MD Ot M19.049 PRIMARY OSTEOARTHRITIS, UNSPECIFIED HAND 01/20/2017 ZARA DAVIDSON MD Ot R19.4 CHANGE IN BOWEL HABIT 01/20/2017 ZRAA DAVIDSON MD Ot Z79.82 FDC (CURRENT) USE OF ASPIRIN 01/20/2017 ZARA DAVIDSON MD Ot Z85.828 PERSONAL HISTORY OF OTHER MALIGNANT NEOP 01/20/2017 ZARA DAVIDSON MD Ot Z87.19 PERSONAL HISTORY OF OTHER DISEASES OF TH 01/20/2017 ZARA DAVIDSON MD Ot Z98.890 OTHER SPECIFIED POSTPROCEDURAL STATES 01/20/2017 BECKY SHARMA MD Ot 724.2 LUMBAGO 01/20/2017 BECKY SHARMA MD Ot 786.50 CHEST PAIN NOS 01/20/2017 SHYLA JARAMILLO MD Ot V72.84 EXAM PRE-OPERATIVE NOS 01/20/2017 BRANDON SMITH MD Ot 244.9 HYPOTHYROIDISM NOS 01/20/2017 BRANDON SMITH MD Ot 396.3 MITRAL/AORTIC ADARSH INSUFF 01/20/2017 BRANDON SMITH MD Ot 435.9 TRANS CEREB ISCHEMIA NOS 01/20/2017 BRANDON SMITH MD Ot 780.4 DIZZINESS AND GIDDINESS 01/20/2017 BRANDON SMITH MD Ot 780.79 OTH MALAISE FATIGUE 02/10/2017 FRANCIE HOLLINGSWORTH Ot E03.9 HYPOTHYROIDISM, UNSPECIFIED 02/10/2017 FRANCIE HOLLINGSWORTH Ot Z98.890 OTHER SPECIFIED POSTPROCEDURAL STATES 04/20/2017 ZARA DAVIDSON MD Ot E03.9 HYPOTHYROIDISM, UNSPECIFIED 04/20/2017 ZARA DAVIDSON MD Ot F41.9 ANXIETY DISORDER, UNSPECIFIED 04/20/2017 ZARA DAVIDSON MD Ot K21.9 GASTRO-ESOPHAGEAL REFLUX DISEASE WITHOUT 04/20/2017 ZARA DAVIDSON MD Ot K59.09 OTHER CONSTIPATION 04/20/2017 ZARA DAVIDSON MD Ot K91.89 OTH POSTPROCEDURAL COMPLICATIONS AND DIS 04/20/2017 ZARA DAVIDSON MD Ot R19.4 CHANGE IN BOWEL HABIT 04/20/2017 ZARA DAVIDSON MD Ot Z79.82 FORK LIFT TECHNICIAN (CURRENT) USE OF ASPIRIN 04/20/2017 ZARA DAVIDSON MD Ot Z85.828 PERSONAL HISTORY OF OTHER MALIGNANT NEOP 04/20/2017 ZARA DAVIDSON MD Ot Z87.19 PERSONAL HISTORY OF OTHER DISEASES OF TH 04/20/2017 ZARA DAVIDSON MD Ot Z98.890 OTHER SPECIFIED POSTPROCEDURAL STATES 04/22/2017 ZARA DAVIDSON MD Ot E03.9 HYPOTHYROIDISM, UNSPECIFIED 04/22/2017 ZARA DAVIDSON MD Ot F41.9 ANXIETY DISORDER, UNSPECIFIED 04/22/2017 ZARA DAVIDSON MD Ot K21.9 GASTRO-ESOPHAGEAL REFLUX DISEASE WITHOUT 04/22/2017 ZARA DAVIDSON MD Ot K59.09 OTHER CONSTIPATION 04/22/2017 ZARA DAVIDSON MD Ot K91.89 OTH POSTPROCEDURAL COMPLICATIONS AND DIS 04/22/2017 ZARA DAVIDSON MD Ot R19.4 CHANGE IN BOWEL HABIT 04/22/2017 ZARA DAVIDSON MD Ot Z79.82 FORK LIFT TECHNICIAN (CURRENT) USE OF ASPIRIN 04/22/2017 ZARA DAVIDSON MD Ot Z85.828 PERSONAL HISTORY OF OTHER MALIGNANT NEOP 04/22/2017 ZARA DAVIDSON MD Ot Z87.19 PERSONAL HISTORY OF OTHER DISEASES OF TH 04/22/2017 ZARA DAVIDSON MD Ot Z98.890 OTHER SPECIFIED POSTPROCEDURAL STATES 08/15/2017 BECKY SHARMA MD Ot M25.551 PAIN IN RIGHT HIP 08/15/2017 BECKY SHARMA MD Ot R00.1 BRADYCARDIA, UNSPECIFIED 08/31/2017 BECKY SHARMA MD Ot M25.551 PAIN IN RIGHT HIP 08/31/2017 BECKY SHARMA MD Ot R00.1 BRADYCARDIA, UNSPECIFIED 09/06/2017 BECKY SHARMA MD Ot M25.551 PAIN IN RIGHT HIP 09/06/2017 BECKY SHARMA MD Ot R00.1 BRADYCARDIA, UNSPECIFIED 05/26/2018 BECKY SHARMA MD Ot 724.2 LUMBAGO 05/26/2018 BECKY SHARMA MD Ot 786.50 CHEST PAIN NOS 05/26/2018 ELLA BELTRAN, SHYLA Klein Ot V72.84 EXAM PRE-OPERATIVE NOS 05/26/2018 BRANDON SMITH MD Ot 244.9 HYPOTHYROIDISM NOS 05/26/2018 BRANDON SMITH MD Ot 396.3 MITRAL/AORTIC ADARSH INSUFF 05/26/2018 BRANDON SMITH MD Ot 435.9 TRANS CEREB ISCHEMIA NOS 05/26/2018 BRANDON SMITH MD Ot 780.4 DIZZINESS AND GIDDINESS 05/26/2018 BRANDON SMITH MD Ot 780.79 OTH MALAISE FATIGUE 05/26/2018 FRANCIE HOLLINGSWORTH Ot E03.9 HYPOTHYROIDISM, UNSPECIFIED 05/26/2018 FRANCIE HOLLINGSWORTH Ot Z98.890 OTHER SPECIFIED POSTPROCEDURAL STATES 05/26/2018 BECKY SHARMA MD Ot M25.551 PAIN IN RIGHT HIP 05/26/2018 BECKY SHARMA MD Ot R00.1 BRADYCARDIA, UNSPECIFIED 05/28/2018 MICAHCHUNG OGN L BIAS CUTTER HELPER Ot E03.9 HYPOTHYROIDISM, UNSPECIFIED 05/28/2018 MICAHCHUNG OGN L BIAS CUTTER HELPER Ot I49.8 OTHER SPECIFIED CARDIAC ARRHYTHMIAS 05/28/2018 MICAHCHUNG OGN L BIAS CUTTER HELPER Ot Z79.01 FDC (CURRENT) USE OF ANTICOAGULANT 05/28/2018 MICAH GRECIA L BIAS CUTTER HELPER Ot Z95.0 PRESENCE OF CARDIAC PACEMAKER 06/01/2018 MICAH, GRECIA L BIAS CUTTER HELPER Ot E03.9 HYPOTHYROIDISM, UNSPECIFIED 06/01/2018 MICAH, GRECIA L BIAS CUTTER HELPER Ot I49.8 OTHER SPECIFIED CARDIAC ARRHYTHMIAS 06/01/2018 MICAH, GRECIA L BIAS CUTTER HELPER Ot Z79.01 FORK LIFT TECHNICIAN (CURRENT) USE OF ANTICOAGULANT 06/01/2018 MICAH, GRECIA L BIAS CUTTER HELPER Ot Z95.0 PRESENCE OF CARDIAC PACEMAKER 06/15/2018 MICAH, GRECIA L BIAS CUTTER HELPER Ot E03.9 HYPOTHYROIDISM, UNSPECIFIED 06/15/2018 MICAH, GRECIA L BIAS CUTTER HELPER Ot I49.8 OTHER SPECIFIED CARDIAC ARRHYTHMIAS 06/15/2018 MICAH, GRECIA L BIAS CUTTER HELPER Ot Z79.01 FORK LIFT TECHNICIAN (CURRENT) USE OF ANTICOAGULANT 06/15/2018 MICAH, GRECIA L BIAS CUTTER HELPER Ot Z95.0 PRESENCE OF CARDIAC PACEMAKER 09/13/2018 BECYK SHARMA MD Ot 724.2 LUMBAGO 09/13/2018 BECKY SHARMA MD Ot 786.50 CHEST PAIN NOS 09/13/2018 ELLA BELTRAN, SHYLA Klein Ot V72.84 EXAM PRE-OPERATIVE NOS 09/13/2018 BRANDON SMITH MD Ot 244.9 HYPOTHYROIDISM NOS 09/13/2018 BRANDON SMITH MD Ot 396.3 MITRAL/AORTIC ADARSH INSUFF 09/13/2018 BRANDON SMITH MD Ot 435.9 TRANS CEREB ISCHEMIA NOS 09/13/2018 SARAH BELTRAN, BRANDON Lux Ot 780.4 DIZZINESS AND GIDDINESS 09/13/2018 BRANDON SMITH MD Ot 780.79 OTH MALAISE FATIGUE 09/13/2018 FRANCIE HOLLINGSWORTH Ot E03.9 HYPOTHYROIDISM, UNSPECIFIED 09/13/2018 FRANCIE HOLLINGSWORTH Ot Z98.890 OTHER SPECIFIED POSTPROCEDURAL STATES 09/13/2018 BECKY SHARMA MD Ot M25.551 PAIN IN RIGHT HIP 09/13/2018 BECKY SHARMA MD Ot R00.1 BRADYCARDIA, UNSPECIFIED 09/13/2018 MICAH, GRECIA L BIAS CUTTER HELPER Ot E03.9 HYPOTHYROIDISM, UNSPECIFIED 09/13/2018 MICAH, GRECIA L BIAS CUTTER HELPER Ot I49.8 OTHER SPECIFIED CARDIAC ARRHYTHMIAS 09/13/2018 MICAH, GRECIA L BIAS CUTTER HELPER Ot Z79.01 FORK LIFT TECHNICIAN (CURRENT) USE OF ANTICOAGULANT 09/13/2018 CHUNG OBRIENMaryjane Robison APRN Ot Z95.0 PRESENCE OF CARDIAC PACEMAKER 10/05/2018 BECKY SHARMA MD Ot 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 Results Test Result Range Complete blood count (CBC) with automated white blood cell (WBC) differential - 06/25/16 07:55 Blood leukocytes automated count (number/volume) 6.9 10*3/uL 4.3-11.0 Blood erythrocytes automated count (number/volume) 4.62 10*6/uL 4.35-5.85 Venous blood hemoglobin measurement (mass/volume) 14.1 g/dL 13.3-17.7 Blood hematocrit (volume fraction) 42 % 40-54 Automated erythrocyte mean corpuscular volume 90 [foz_us] 80-99 Automated erythrocyte mean corpuscular hemoglobin (mass per erythrocyte) 31 pg 25-34 Automated erythrocyte mean corpuscular hemoglobin concentration measurement (mass/volume) 34 g/dL 32-36 Automated erythrocyte distribution width ratio 12.7 % 10.0- 14.5 Automated blood platelet count (count/volume) 203 10*3/uL 130-400 Automated blood platelet mean volume measurement 10.2 [foz_us] 7.4-10.4 Automated blood neutrophils/100 leukocytes 65 % 42-75 Automated blood lymphocytes/100 leukocytes 22 % 12-44 Blood monocytes/100 leukocytes 11 % 0-12 Automated blood eosinophils/100 leukocytes 2 % 0-10 Automated blood basophils/100 leukocytes 0 % 0-10 Blood neutrophils automated count (number/volume) 4.5 10*3 1.8-7.8 Blood lymphocytes automated count (number/volume) 1.5 10*3 1.0-4.0 Blood monocytes automated count (number/volume) 0.8 10*3 0.0- 1.0 Automated eosinophil count 0.1 10*3/uL 0.0-0.3 Automated blood basophil count (count/volume) 0.0 10*3/uL 0.0-0.1 Blood lactic acid measurement (moles/volume) - 06/25/16 07:55 Blood lactic acid measurement (moles/volume) 1.87 mmol/L 0.50- 2.00 Serum or plasma troponin i.cardiac measurement (mass/volume) - 06/25/16 07:55 Serum or plasma troponin i.cardiac measurement (mass/volume) < ng/mL <0.30 Comprehensive metabolic panel - 06/25/16 07:55 Serum or plasma sodium measurement (moles/volume) 139 mmol/L 135-145 Serum or plasma potassium measurement (moles/volume) 4.3 mmol/L 3.6-5.0 Serum or plasma chloride measurement (moles/volume) 106 mmol/L 98-107 Carbon dioxide 21 mmol/L 21-32 Serum or plasma anion gap determination (moles/volume) 12 mmol/L 5-14 Serum or plasma urea nitrogen measurement (mass/volume) 16 mg/dL 7-18 Serum or plasma creatinine measurement (mass/volume) 0.91 mg/dL 0.60-1.30 Serum or plasma urea nitrogen/creatinine mass ratio 18 NRG Serum or plasma creatinine measurement with calculation of estimated glomerular filtration rate > NRG Serum or plasma glucose measurement (mass/volume) 140 mg/dL 70-105 Serum or plasma calcium measurement (mass/volume) 8.9 mg/dL 8.5-10.1 Serum or plasma total bilirubin measurement (mass/volume) 0.7 mg/dL 0.1-1.0 Serum or plasma alkaline phosphatase measurement (enzymatic activity/volume) 61 U/L 40-136 Serum or plasma aspartate aminotransferase measurement (enzymatic activity/volume) 30 U/L 5-34 Serum or plasma alanine aminotransferase measurement (enzymatic activity/volume) 30 U/L 0-55 Serum or plasma protein measurement (mass/volume) 6.4 g/dL 6.4-8.2 Serum or plasma albumin measurement (mass/volume) 3.7 g/dL 3.2-4.5 Bacterial blood culture - 06/25/16 07:55 Bacterial blood culture NG NRG Bacterial blood culture - 06/25/16 08:51 Bacterial blood culture NG NRG Arterial blood gas measurement - 06/25/16 09:01 Blood pCO2 39 mm[Hg] 35-45 Blood pO2 58 mm[Hg] 79-93 Arterial blood bicarbonate measurement (moles/volume) 32 mmol/L 23-27 Arterial blood base excess by calculation 8.0 mmol/L -2.5-2.5 Arterial blood oxygen saturation measurement 92 % 94-100 * Inhaled oxygen flow rate ROOM AIR NRG Arterial blood pH measurement with patient temperature correction 7.52 7.37-7.43 Arterial blood carbon dioxide, total measurement (moles/volume) 32.7 mmol/L 21.0-31.0 Body site LT RAD NRG Assessment of wrist artery patency prior to arterial puncture YES-POS NRG Setting of ventilation mode NO NRG Measurement of body temperature 97.8 NRG Complete blood count (CBC) with automated white blood cell (WBC) differential - 06/26/16 04:15 Blood leukocytes automated count (number/volume) 6.1 10*3/uL 4.3-11.0 Blood erythrocytes automated count (number/volume) 4.37 10*6/uL 4.35-5.85 Venous blood hemoglobin measurement (mass/volume) 13.4 g/dL 13.3-17.7 Blood hematocrit (volume fraction) 40 % 40-54 Automated erythrocyte mean corpuscular volume 91 [foz_us] 80-99 Automated erythrocyte mean corpuscular hemoglobin (mass per erythrocyte) 31 pg 25-34 Automated erythrocyte mean corpuscular hemoglobin concentration measurement (mass/volume) 34 g/dL 32-36 Automated erythrocyte distribution width ratio 13.1 % 10.0- 14.5 Automated blood platelet count (count/volume) 213 10*3/uL 130-400 Automated blood platelet mean volume measurement 10.3 [foz_us] 7.4-10.4 Automated blood neutrophils/100 leukocytes 55 % 42-75 Automated blood lymphocytes/100 leukocytes 29 % 12-44 Blood monocytes/100 leukocytes 14 % 0-12 Automated blood eosinophils/100 leukocytes 2 % 0-10 Automated blood basophils/100 leukocytes 0 % 0-10 Blood neutrophils automated count (number/volume) 3.4 10*3 1.8-7.8 Blood lymphocytes automated count (number/volume) 1.8 10*3 1.0-4.0 Blood monocytes automated count (number/volume) 0.9 10*3 0.0- 1.0 Automated eosinophil count 0.1 10*3/uL 0.0-0.3 Automated blood basophil count (count/volume) 0.0 10*3/uL 0.0-0.1 Comprehensive metabolic panel - 06/26/16 04:15 Serum or plasma sodium measurement (moles/volume) 141 mmol/L 135-145 Serum or plasma potassium measurement (moles/volume) 4.5 mmol/L 3.6-5.0 Serum or plasma chloride measurement (moles/volume) 107 mmol/L 98-107 Carbon dioxide 25 mmol/L 21-32 Serum or plasma anion gap determination (moles/volume) 9 mmol/L 5-14 Serum or plasma urea nitrogen measurement (mass/volume) 12 mg/dL 7-18 Serum or plasma creatinine measurement (mass/volume) 0.90 mg/dL 0.60-1.30 Serum or plasma urea nitrogen/creatinine mass ratio 13 NRG Serum or plasma creatinine measurement with calculation of estimated glomerular filtration rate > NRG Serum or plasma glucose measurement (mass/volume) 116 mg/dL 70-105 Serum or plasma calcium measurement (mass/volume) 8.8 mg/dL 8.5-10.1 Serum or plasma total bilirubin measurement (mass/volume) 0.9 mg/dL 0.1-1.0 Serum or plasma alkaline phosphatase measurement (enzymatic activity/volume) 60 U/L 40-136 Serum or plasma aspartate aminotransferase measurement (enzymatic activity/volume) 25 U/L 5-34 Serum or plasma alanine aminotransferase measurement (enzymatic activity/volume) 28 U/L 0-55 Serum or plasma protein measurement (mass/volume) 6.2 g/dL 6.4-8.2 Serum or plasma albumin measurement (mass/volume) 3.6 g/dL 3.2-4.5 Methicillin resistant Staphylococcus aureus (MRSA) screening culture - 01/16/17 06:15 Methicillin resistant Staphylococcus aureus (MRSA) screening culture NEG NRG Complete urinalysis with reflex to culture - 01/20/17 10:30 Urine color determination YELLOW NRG Urine clarity determination CLEAR NRG Urine pH measurement by test strip 7 5-9 Specific gravity of urine by test strip 1.010 1.016-1.022 Urine protein assay by test strip, semi-quantitative NEGATIVE NEGATIVE Urine glucose detection by automated test strip NEGATIVE NEGATIVE Erythrocytes detection in urine sediment by light microscopy NEGATIVE NEGATIVE Urine ketones detection by automated test strip NEGATIVE NEGATIVE Urine nitrite detection by test strip NEGATIVE NEGATIVE Urine total bilirubin detection by test strip NEGATIVE NEGATIVE Urine urobilinogen measurement by automated test strip (mass/volume) NORMAL NORMAL Urine leukocyte esterase detection by dipstick NEGATIVE NEGATIVE Automated urine sediment erythrocyte count by microscopy (number/high power field) NONE NRG Automated urine sediment leukocyte count by microscopy (number/high power field) NONE NRG Bacteria detection in urine sediment by light microscopy NEGATIVE NRG Crystals detection in urine sediment by light microscopy NONE NRG Casts detection in urine sediment by light microscopy NONE NRG Mucus detection in urine sediment by light microscopy SMALL NRG Complete urinalysis with reflex to culture NO NRG Complete blood count (CBC) with automated white blood cell (WBC) differential - 01/20/17 10:30 Blood leukocytes automated count (number/volume) 10.5 10*3/uL 4.3-11.0 Blood erythrocytes automated count (number/volume) 5.03 10*6/uL 4.35-5.85 Venous blood hemoglobin measurement (mass/volume) 15.1 g/dL 13.3-17.7 Blood hematocrit (volume fraction) 45 % 40-54 Automated erythrocyte mean corpuscular volume 89 [foz_us] 80-99 Automated erythrocyte mean corpuscular hemoglobin (mass per erythrocyte) 30 pg 25-34 Automated erythrocyte mean corpuscular hemoglobin concentration measurement (mass/volume) 34 g/dL 32-36 Automated erythrocyte distribution width ratio 12.7 % 10.0- 14.5 Automated blood platelet count (count/volume) 198 10*3/uL 130-400 Automated blood platelet mean volume measurement 10.2 [foz_us] 7.4-10.4 Automated blood neutrophils/100 leukocytes 72 % 42-75 Automated blood lymphocytes/100 leukocytes 14 % 12-44 Blood monocytes/100 leukocytes 13 % 0-12 Automated blood eosinophils/100 leukocytes 1 % 0-10 Automated blood basophils/100 leukocytes 0 % 0-10 Blood neutrophils automated count (number/volume) 7.6 10*3 1.8-7.8 Blood lymphocytes automated count (number/volume) 1.5 10*3 1.0-4.0 Blood monocytes automated count (number/volume) 1.3 10*3 0.0- 1.0 Automated eosinophil count 0.1 10*3/uL 0.0-0.3 Automated blood basophil count (count/volume) 0.0 10*3/uL 0.0-0.1 Comprehensive metabolic panel - 01/20/17 10:30 Serum or plasma sodium measurement (moles/volume) 136 mmol/L 135-145 Serum or plasma potassium measurement (moles/volume) 4.3 mmol/L 3.6-5.0 Serum or plasma chloride measurement (moles/volume) 102 mmol/L 98-107 Carbon dioxide 24 mmol/L 21-32 Serum or plasma anion gap determination (moles/volume) 10 mmol/L 5-14 Serum or plasma urea nitrogen measurement (mass/volume) 17 mg/dL 7-18 Serum or plasma creatinine measurement (mass/volume) 0.85 mg/dL 0.60-1.30 Serum or plasma urea nitrogen/creatinine mass ratio 20 NRG Serum or plasma creatinine measurement with calculation of estimated glomerular filtration rate > NRG Serum or plasma glucose measurement (mass/volume) 117 mg/dL 70-105 Serum or plasma calcium measurement (mass/volume) 10.0 mg/dL 8.5-10.1 Serum or plasma total bilirubin measurement (mass/volume) 0.9 mg/dL 0.1-1.0 Serum or plasma alkaline phosphatase measurement (enzymatic activity/volume) 83 U/L 40-136 Serum or plasma aspartate aminotransferase measurement (enzymatic activity/volume) 20 U/L 5-34 Serum or plasma alanine aminotransferase measurement (enzymatic activity/volume) 18 U/L 0-55 Serum or plasma protein measurement (mass/volume) 7.5 g/dL 6.4-8.2 Serum or plasma albumin measurement (mass/volume) 4.3 g/dL 3.2-4.5 Lipid 1996 panel - 01/20/17 10:35 Serum or plasma triglyceride measurement (mass/volume) 174 mg/dL <150 Serum or plasma cholesterol measurement (mass/volume) 185 mg/dL < 200 Serum or plasma cholesterol in HDL measurement (mass/volume) 48 mg/dL 40-60 Cholesterol in LDL [mass/volume] in serum or plasma by direct assay 117 mg/dL 1-129 Serum or plasma cholesterol in VLDL measurement (mass/volume) 35 mg/dL 5-40 THYROID STIMULATING HORMONE - 01/20/17 10:35 THYROID STIMULATING HORMONE 0.79 u[iU]/mL 0.35-4.94 Complete blood count (CBC) with automated white blood cell (WBC) differential - 05/26/18 11:59 Blood leukocytes automated count (number/volume) 19.6 10*3/uL 4.3-11.0 Blood erythrocytes automated count (number/volume) 4.95 10*6/uL 4.35-5.85 Venous blood hemoglobin measurement (mass/volume) 15.1 g/dL 13.3-17.7 Blood hematocrit (volume fraction) 45 % 40-54 Automated erythrocyte mean corpuscular volume 91 [foz_us] 80-99 Automated erythrocyte mean corpuscular hemoglobin (mass per erythrocyte) 31 pg 25-34 Automated erythrocyte mean corpuscular hemoglobin concentration measurement (mass/volume) 34 g/dL 32-36 Automated erythrocyte distribution width ratio 13.0 % 10.0- 14.5 Automated blood platelet count (count/volume) 147 10*3/uL 130-400 Automated blood platelet mean volume measurement 10.1 [foz_us] 7.4-10.4 Automated blood neutrophils/100 leukocytes 76 % 42-75 Automated blood lymphocytes/100 leukocytes 13 % 12-44 Blood monocytes/100 leukocytes 11 % 0-12 Automated blood eosinophils/100 leukocytes 0 % 0-10 Automated blood basophils/100 leukocytes 0 % 0-10 Blood neutrophils automated count (number/volume) 15.0 10*3 1.8-7.8 Blood lymphocytes automated count (number/volume) 2.5 10*3 1.0-4.0 Blood monocytes automated count (number/volume) 2.1 10*3 0.0- 1.0 Automated eosinophil count 0.0 10*3/uL 0.0-0.3 Automated blood basophil count (count/volume) 0.0 10*3/uL 0.0-0.1 PT panel in platelet poor plasma by coagulation assay - 05/26/18 11:59 Prothrombin time (PT) in platelet poor plasma by coagulation assay 18.0 s 12.2-14.7 INR in platelet poor plasma or blood by coagulation assay 1.5 0.8-1.4 Blood manual differential performed detection - 05/26/18 11:59 Blood monocytes/100 leukocytes 8 % NRG Manual blood segmented neutrophils/100 leukocytes 80 % NRG Blood band neutrophils/100 leukocytes 1 % NRG Manual blood lymphocytes/100 leukocytes 11 % NRG Manual eosinophils/100 leukocytes in nose 0 % NRG Manual blood basophils/100 leukocytes 0 % NRG Blood erythrocyte morphology finding identification NORMAL NRG Encounters ACCT No. Visit Date/Time Discharge Status Pt. Type Provider Facility Loc./Unit Complaint [id number] 10/15/2018 05:37:00 10/15/2018 11:59:00 DIS Outpatient SHYLA JARAMILLO MD [facility] PREOP COLONOSCOPY/EGD [id number] 09/14/2018 11:53:00 09/14/2018 23:59:59 CLS Outpatient BECKY SHARMA MD [facility] RAD ENLARGED R SALVARY GLAND [id number] 05/26/2018 11:44:00 05/26/2018 23:59:59 CLS Outpatient GRECIA OBRIEN APRN [facility] LAB FDC BLOOD THINNERS,HEMATOMA TO INCISION SITE [id number] 08/14/2017 16:01:00 08/14/2017 23:59:59 CLS Outpatient BECKY SHARMA MD [facility] CARD BRADYCARDIA, RIGHT HIP PAIN [id number] 01/20/2017 12:08:00 01/20/2017 23:59:59 CLS Outpatient FRANCIE HOLLINGSWORTH [facility] LAB HYPOTHYROIDISM [id number] 01/20/2017 09:51:00 01/20/2017 11:58:00 DIS Emergency ZARA DAVIDSON MD [facility] ER NO BOWEL MOVEMENT AFTER HERNIA SURGERY [id number] 01/16/2017 05:59:00 01/16/2017 13:50:00 DIS Outpatient KAYLEN ARIAS DO [facility] [facility] [id number] 01/12/2017 05:33:00 01/12/2017 10:29:00 DIS Outpatient KAYLEN ARIAS DO [facility] PREOP LEFT INGUINAL HERNIA REPAIR [id number] 06/25/2016 10:58:00 06/27/2016 13:03:00 DIS Inpatient ZARA DAVIDSON MD [facility] 4TH PNEUMONIA,HYPOXIA [id number] 02/04/2014 10:31:00 02/04/2014 23:59:59 CLS Outpatient BRANDON SMITH MD [facility] CARD TIA,DIZZINESS [id number] 12/10/2013 07:27:00 12/10/2013 11:00:00 DIS Outpatient SHYLA JARAMILLO MD [facility] SDC HISTORY POLYPS;DYSPHAGIA [id number] 12/04/2013 07:08:00 12/04/2013 23:59:59 CLS Outpatient SHYLA JARAMILLO MD [facility] PREOP HISTORY POLYPS;DYSPHAGIA [id number] 07/22/2013 10:52:00 07/22/2013 23:59:59 CLS Outpatient BECKY SHARMA MD [facility] RAD L RIB PAIN [id number] 04/29/2013 13:45:00 04/29/2013 23:59:59 CLS Outpatient BECKY SHARMA MD [facility] RAD CVA TENDERNESS [id number] 10/19/2018 08:00:00 PEN Preadmit SHYLA JARAMILLO MD [facility] ENDO SCREENING/DYSPHAGIA
[2018-10-19] MEDS ORDERED: D5 LR IV SOLUTION 1,000 ML IV ONE (07:07)
[2018-10-19] MEDS ORDERED: MIDAZOLAM 2 MG/2 ML (VERSED) VIAL ONE ×2 (07:22)
[2018-10-19] MEDS ORDERED: fentaNYL INJECTION 100 MCG/2 ML AMP ONE (07:22)
[2018-10-19] MEDS ORDERED: LIDOCAINE JELLY 2% 6 ML SYRINGE ONE (07:23)
[2018-10-19] MEDS ORDERED: HURRICAINE EXT TUBE (BENZOCAINE) ONE (07:23)
[2018-10-19] MEDS ORDERED: D5 LR IV SOLUTION 1,000 ML IV STA (07:37)
[2018-10-19 07:40] VITALS: BP 124/76
--- NOTE | 2018-10-19 07:41 | Pre-Op Note & Conscious Sedat ---
Pre-Operative Progress Note H&P Reviewed The H&P was reviewed, patient examined and no changes noted. Date H&P Reviewed: Oct 19, 2018 Time H&P Reviewed: 07:41 Conscious Sedation Pre-Proced ASA Score 2 For ASA 3 and 4: Consider anesthesia and medical clearance. Also, for patients with a history of failed moderate sedation consider anesthesia. Airway Lungs Heart ASA score ASA 1: a normal healthy patient ASA 2: a patient with a mild systemic disease (mid diabetes, controlled hypertension, obesity ASA 3: a patient with a severe systemic disease that limits activity (angina, COPD, prior Myocardial infarction) ASA 4: a patient with an incapacitating disease that is a constant threat to life (CHF, renal failure) ASA 5: a moribund patient not expected to survive 24 hrs. (ruptured aneurysm) ASA 6: a declared brain- patient whose organs are being harvested. For emergent operations, add the letter E after the classification Mallampati Classification Grade 2 Sedation Plan Analgesia, Amnesia, Plan communicated to team members, Discussed options with patient/fam, Discussed risks with patient/fam The patient is an appropriate candidate to undergo the planned procedure, sedation, and anesthesia. The patient immediately re-assessed prior to indication. SHYLA JARAMILLO MD Oct 19, 2018 07:41
[2018-10-19] MEDS ORDERED: fentaNYL INJECTION 100 MCG/2 ML AMP IVP ONE (07:45)
[2018-10-19] MEDS ORDERED: MIDAZOLAM 2 MG/2 ML (VERSED) VIAL IVP ONE (07:45)
[2018-10-19] MEDS ORDERED: LIDOCAINE JELLY 2% 6 ML SYRINGE MM PRN (07:45)
[2018-10-19] MEDS ORDERED: HURRICAINE EXT TUBE (BENZOCAINE) XX PRN (07:45)
[2018-10-19 08:55] VITALS: BP 92/62
[2018-10-19] MEDS ORDERED: RIVA20TA PO (09:20)
[2018-10-19] MEDS ORDERED: ASPI-983 PO (09:20)
[2018-10-19 09:25] VITALS: BP 100/66
[2018-10-19] MEDS ORDERED: OMEP20CA12 PO (09:47)
[2018-10-19 09:55] VITALS: BP 104/68
[2018-10-19 10:05] VITALS: BP 104/68
--- NOTE | 2018-10-19 16:26 | OPERATIVE REPORT ---
DATE OF SERVICE: 10/19/2018 COLONOSCOPY SUMMARY INDICATION FOR THE PROCEDURE: Colonoscopy is performed for screening purposes and EGD was done for dysphagia evaluation. The patient was placed in the left lateral decubitus position. Prior to undergoing colonoscopy, digital rectal evaluation was performed. Anal sphincter tone was normal and the perianal reflex was intact. Prostate was unremarkable with digital inspection and no abnormalities were noted on digital inspection of the anal canal or distal rectal vault. The colonoscope was then inserted into the rectum and under direct visualization advanced to the cecum. The cecum was identified by identification of the ileocecal valve and cecal strap. Photographic documentation was obtained. Careful inspection was made as the colonoscope was withdrawn. The quality of prep was fair. FINDINGS: There was no evidence for internal or external hemorrhoids and the rectum was unremarkable except for one diminutive 4 mm sessile adenomatous appearing polyp was biopsied and ablated and submitted for histopathology. Several small sigmoid diverticulum were present without evidence of diverticulitis. No other sigmoid colonic abnormalities were appreciated. The descending colon, splenic flexure and transverse colon were unremarkable. There was a diminutive 3 mm sessile polyp noted at the hepatic flexure. The best I could do was grasp tissue just adjacent the polyp. Cautery current was noted going underneath the entire polyp. It was not submitted as I was not able to grasp the actual polyp tissue. There was no subsequent blood loss. The ascending colon and cecum were unremarkable. ASSESSMENT: Two polyps were ablated, only one was submitted for histopathology. See above. Both with benign features with no subsequent blood loss via hot forceps. Mild diverticular disease confined to the sigmoid colon was present and the prostate was unremarkable on digital inspection. We then proceeded with EGD evaluation. The endoscope was inserted in the oral cavity and under direct visualization, the esophagus was intubated. The endoscope was passed down the esophagus through the stomach and second portion of duodenum. Careful inspection was made as the endoscope was withdrawn. The patient tolerated the procedure well. FINDINGS: 1. Proximal and mid esophagus were unremarkable. Erythema was noted at the Z-line with one area of ulceration with benign appearance involving about 10% of the circumference of the distal esophagus. There was no evidence for stricture formation. The cardia and fundus and stomach are unremarkable. The antrum revealed patchy areas of erythema. A biopsy was obtained and submitted for histopathology. The pylorus and pyloric channel were small in size. With little more than average pressure, I was able to intubate the pylorus and view the duodenal bulb and second portion of the duodenum, which were unremarkable. There was no evidence for retained food in the stomach. 2. Erosive esophagitis, LA grade A is present without evidence for stricture formation or Angulo's change. A biopsy was obtained and submitted for histopathology. I did take the liberty of calling out omeprazole 20 mg to be taken q.a.m. daily. If the patient does have progressive dysphagia in the future, he will need repeat EGD for consideration for dilatation. The patient did have rather small pylorus with increased tone without evidence for previous peptic ulcer disease, scarring or overt stricture formation. If the patient in the future does report history of significant early satiety or post-prandial distress, would need repeat EGD with consideration for dilatation of this area as well. As he does not have that type of history with no food or fluid retention, dilatation was not performed at this time. I thank you for the referral of this pleasant gentleman. Sincerely, Job ID: [id number] DocumentID: [id number] Dictated Date: 10/19/2018 11:58:48 Library Customer Service Clerk Date: 10/19/2018 16:26:31 Dictated By: SHYLA JARAMILLO MD [facility]
== END 2018-10-19 10:05 | disposition home or self-care (01) ==
LOC: ENDO 07:00
PROVIDERS: ATTEND Internal Medicine
DX: Z12.11 Encounter for screening for malignant neoplasm of colon (principal); K63.5 Polyp of colon; K62.1 Rectal polyp; K57.30 Diverticulosis of large intestine without perforation or abscess without bleeding; K20.8 Other esophagitis; Z86.010 Personal history of colon polyps; E06.3 Autoimmune thyroiditis; I48.2 Chronic atrial fibrillation; I49.8 Other specified cardiac arrhythmias; Z95.0 Presence of cardiac pacemaker; Z79.01 Long term (current) use of anticoagulants; Z79.899 Other long term (current) drug therapy
CPT/HCPCS: 88305; 88312